=== PATIENT | female | born 1965 | race Caucasian/White ===

== ENCOUNTER 2017-09-02 12:14 | Day surgery (SDC) | payer BC ==
[~2017-09-02 12:14] MED LIST: Lactated Ringers 1,000 ML IV SCH
--- NOTE | 2017-09-02 13:12 | PCM.PREANE ---
Preanesthetic Assessment - Procedure Proposed Procedure: EGD - Anesthesia/Transfusion/Family Hx Anesthesia History: Prior Anesthesia Without Reaction Family History of Anesthesia Reaction: No Transfusion History: No Prior Transfusion(s) Intubation History: Unknown - Review of Systems General: Other (swallowing difficulties (family hx of the same)) Pulmonary: Other (Asthmatic - no episodes since appearing in [place]) Cardiovascular: No Symptoms Gastrointestinal: Difficulty Swallowing (see above) Neurological: No Symptoms Other: Reports: None - Physical Assessment NPO Status Date: 09/01/17 NPO Status Time: 22:00 O2 Sat by Pulse Oximetry: 97 Respiratory Rate: 16 Vital Signs: Last Vital Signs Temp 97.9 F 09/02/17 12:37 Pulse 76 09/02/17 12:37 Resp 16 09/02/17 12:37 BP 155/100 H 09/02/17 12:37 Pulse Ox 97 09/02/17 12:37 Height: 5 ft 7 in Weight: 204 lb ASA Class: 2 Mental Status: Alert & Oriented x3 Airway Class: Mallampati = 1 Dentition: Reports: Normal Dentition Thyro-Mental Finger Breadths: 4 Mouth Opening Finger Breadths: 3 ROM/Head Extension: Full Lungs: Clear to Auscultation, Normal Respiratory Effort Cardiovascular: Regular Rate, Regular Rhythm, No Murmurs - Allergies Allergies/Adverse Reactions: Allergies Allergy/AdvReac Type Severity Reaction Status Date / Time Sulfa (Sulfonamide Allergy Rash Verified 06/17/16 13:52 Antibiotics) - Blood Blood Available: No Product(s) Available: None - Anesthesia Plan Pre-Op Medication Ordered: None - Acknowledgements Anesthesia Type Planned: MAC Pt an Appropriate Candidate for the Planned Anesthesia: Yes Alternatives and Risks of Anesthesia Discussed w Pt/Guardian: Yes Pt/Guardian Understands and Agrees with Anesthesia Plan: Yes PreAnesthesia Questionnaire HEENT History: Reports: None Cardiovascular History: Reports: None Respiratory History: Reports: None Gastrointestinal History: Reports: GERD Genitourinary History: Reports: Renal Calculus 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 Musculoskeletal History: Reports: Other (See Below) Other Musculoskeletal History: back and leg spasms Neurological History: Reports: None Psychiatric History: Reports: None Endocrine/Metabolic History: Reports: Obesity/BMI 30+ Hematologic History: Reports: None Immunologic History: Reports: None Oncologic (Cancer) History: Reports: None Dermatologic History: Reports: None - Past Surgical History Head Surgeries/Procedures: Reports: None HEENT Surgical History: Reports: Adenoidectomy, Naso-Sinus Surgery, Oral Surgery , Tonsillectomy Other HEENT Surgeries/Procedures: hx of fx orbit from being hit by a softball Cardiovascular Surgical History: Reports: None Respiratory Surgical History: Reports: None GI Surgical History: Reports: Appendectomy, Cholecystectomy, Colonoscopy Female Surgical History: Reports: Dilitation & Evacuation, Kidney stone extraction Endocrine Surgical History: Reports: None Neurological Surgical History: Reports: None Musculoskeletal Surgical History: Reports: None Oncologic Surgical History: Reports: None Dermatological Surgical History: Reports: None - History Comment History Comment: etoh "1-2x a week" - SUBSTANCE USE Smoking Status *Q: Never Smoker Tobacco Use Within Last Twelve Months: No Recreational Drug Use History: Yes Recreational Drug Last Use: 10 years ago - HOME MEDS Home Medications: Home Meds Cyclobenzaprine HCl 1 tab PO ASDIRECTED PRN 06/17/16 [History] Nabumetone 500 mg PO ASDIRECTED PRN 06/17/16 [History] - CURRENT (IN HOUSE) MEDS Current Meds: Current Medications Lactated Ringer's (Ringers, Lactated) 1,000 mls @ 125 mls/hr IV ASDIRECTED EFFIE Last Admin: 09/02/17 12:39 Dose: 125 mls/hr
[2017-09-02] MEDS ORDERED: Propofol 200 MG/20 ML SDV ONE (13:27)
[2017-09-02] MEDS ORDERED: fentaNYL 100 MCG/2 ML SDV ONE (13:27)
--- NOTE | 2017-09-02 13:48 | PCM.OPNOTE ---
- General Post-Op/Procedure Note Date of Surgery/Procedure: 09/02/17 Operative Procedure(s): egd w bx Findings: see dict [id number] Pre Op Diagnosis: gerd Post-Op Diagnosis: Same Anesthesia Technique: Moderate Sedation Primary Surgeon: Mika Westfall Pathology: egd bx Complications: None Condition: Good
--- NOTE | 2017-09-02 14:07 | PCM.POSTAN ---
POST ANESTHESIA ASSESSMENT - MENTAL STATUS Mental Status: Alert, Oriented - RESPIRATORY Respiratory Status: Respiratory Rate WNL, Airway Patent, O2 Saturation Stable - CARDIOVASCULAR CV Status: Pulse Rate WNL, Blood Pressure Stable - GASTROINTESTINAL GI Status: No Symptoms - POST OP HYDRATION Hydration Status: Adequate & Stable
--- NOTE | 2017-09-02 14:08 | PCM48HPAN ---
Post Anesthesia Note - EVALUATION WITHIN 48HRS OF ANESTHETIC Vital Signs in Normal Range: Yes Patient Participated in Evaluation: Yes Respiratory Function Stable: Yes Airway Patent: Yes Cardiovascular Function Stable: Yes Hydration Status Stable: Yes Pain Control Satisfactory: Yes Nausea and Vomiting Control Satisfactory: Yes Mental Status Recovered: Yes
[2017-09-02 14:19] VITALS: BP 137/80
--- NOTE | 2017-09-02 19:21 | OR ---
SURGEON: Mika Westfall MD DATE OF PROCEDURE: 09/02/2017 PREOPERATIVE DIAGNOSIS: Acid reflux. POSTOPERATIVE DIAGNOSIS: Acid reflux. PROCEDURE PERFORMED: EGD with biopsy. COMPLICATIONS: None. DESCRIPTION OF PROCEDURE: EGD: The patient was taken to the endoscopy room, and with the VICE PRESIDENT DIVERSITY, Diprivan was administered. A well-lubricated EGD scope was gently inserted through the oropharynx, down the esophagus, passing through the gastroesophageal junction, into the stomach. The mucosa was examined upon the passage. Any etiology will be noted. Once in the stomach, we continued to advance to the distal antrum, passed through the pylorus into the second portion of the duodenum. Again, the mucosa was examined for any abnormality and etiology. The scope was then retrieved back to the stomach and then retroflexed to look at the fundus of the stomach. If a biopsy was indicated, we will biopsy the antrum, body, and gastroesophageal junction. The air will be sucked out while the scope is retrieved to reduce the patient's discomfort. The patient tolerated the procedure well. There were no intraoperative complications. Dr. Westfall was present through the whole procedure. Prior to surgery, a time-out had been called, the patient identified, procedure identified and antibiotic administered. FINDINGS: 1. The patient is easily sedated with VICE PRESIDENT DIVERSITY and Diprivan. The patient is soundly snoring. 2. Oropharynx and proximal esophagus are free of disease, and distal esophagus, the GE junction at 40, shows moderate amount of salmon-colored change consistent with acid reflux, and stomach rugae is normal in appearance, and no blood, ulcer, food, bile observed. Antrum was mildly inflamed and duodenum was grossly normal in appearance. The scope retrieved back to the stomach. Retroflexed look at the fundus of stomach, there was no hiatal hernia. Biopsy done at antrum, body, GE junction at 40, and sucked out the air while scope pulling out. PRIMARY SURGEON: SECONDARY SURGEON: QUILL WORKER: REASON QUILL WORKER WAS NECESSARY: ROLE OF QUILL WORKER: BRIAN / LAMAR /[id number]
== END 2017-09-02 14:40 | disposition home or self-care (01) ==
LOC: MW.SDS 12:14
PROVIDERS: ATTEND Surgery
DX: K29.50 Unspecified chronic gastritis without bleeding (principal); K21.0 Gastro-esophageal reflux disease with esophagitis; J45.909 Unspecified asthma, uncomplicated; J30.9 Allergic rhinitis, unspecified; Z88.2 Allergy status to sulfonamides; Z79.899 Other long term (current) drug therapy; Z90.49 Acquired absence of other specified parts of digestive tract; Z98.890 Other specified postprocedural states
CPT/HCPCS: 43239; 88305; 88312; J3010; J7120; J2704

== ENCOUNTER 2018-12-01 09:21 | Emergency (ER) | payer BC ==
[2018-12-01] MEDS ORDERED: Sodium Chloride 0.9% 10 ML Syringe FLUSH PRN (10:07)
[2018-12-01] MEDS ORDERED: Sodium Chloride 0.9% 2.5 ML Syringe FLUSH PRN (10:07)
--- NOTE | 2018-12-01 10:09 | EDM.PDOC ---
ED HPI GENERAL MEDICAL PROBLEM - General Chief Complaint: General Stated Complaint: HIGH BP Time Seen by Provider: 12/01/18 10:03 Source of Information: Reports: Patient History Limitations: Reports: No Limitations - History of Present Illness INITIAL COMMENTS - FREE TEXT/NARRATIVE: HISTORY AND PHYSICAL: History of present illness: Patient is a 53-year-old female who presents to the emergency room with concerns of headache and high blood pressure. She states she was initially diagnosed with hypertension approximately 5 weeks ago while at the [facility]. At this time she was started on losartan 25 mg once daily. Since that time she has been evaluated 2-3 other times and has gradually had her medication increased to 75 mg once daily. She has been seeing Dr. Tapia of [place], last seeing him yesterday. She states that she had lab work done but did not have any adjustment in her medications. Patient states that what brought her in today she started to develop a headache. Patient states she does not usually have headaches and that this won't specifically is behind her right eye. Her headache is 6-7 out of 10 and throbbing. Patient states she has not taken her hypertensive medications the past few days for testing that was done in [place]. He was told to start her medication today but has not taken her dose today. She denies fever, chills, visual changes, blurry vision, nausea, vomiting, diaphoresis, chest pain, shortness of breath, palpitations, constipation, burning with urination, syncope, or all other GI, , cardiovascular, respiratory concerns. Patient denies any other health history other than the hypertension. Review of systems: As per history of present illness and below otherwise all systems reviewed and negative. Past medical history: As per history of present illness and as reviewed below otherwise noncontributory. Surgical history: As per history of present illness and as reviewed below otherwise noncontributory. Social history: See social history for further information Family history: As per history of present illness and as reviewed below otherwise noncontributory. Physical exam: General: Well-developed and well-nourished 53-year-old female. Alert and oriented. Nontoxic appearing and in no acute distress. HEENT: Atraumatic, normocephalic, pupils equal and reactive bilaterally, negative for conjunctival pallor or scleral icterus, mucous membranes moist, TMs normal bilaterally, throat clear, neck supple, nontender, trachea midline. No drooling or trismus noted. No meningeal signs. No hot potato voice noted. Lungs: Clear to auscultation, breath sounds equal bilaterally, chest nontender. Heart: S1S2, regular rate and rhythm without overt murmur Abdomen: Soft, nondistended, nontender. Negative for masses or hepatosplenomegaly. Negative for costovertebral tenderness. Pelvis: Stable nontender. Genitourinary: Deferred. Rectal: Deferred. Skin: Intact, warm, dry. No lesions or rashes noted. Extremities: Atraumatic, negative for cords or calf pain. Neurovascular unremarkable. Neuro: Awake, alert, oriented. Cranial nerves II through XII unremarkable. Cerebellum unremarkable. Motor and sensory unremarkable throughout. Exam nonfocal. Notes: I reviewed the lab work that patient is pending at Dr. Carr office in [place]. It appears as if Dr. Carr's testing for secondary causes for hypertension such as pheochromocytoma and renal artery stenosis amongst other causes of secondary hypertension. Lab work is unremarkable. The head CT shows no acute/significant findings. Chest x-ray is negative. I did reassess vitals and patient's blood pressure had returned to normal range by the end of the visit and treatment of her headache has resolved. I did call and speak with Dr. Carr personally about patients ER visit. He has no further recommendations and will follow up with her as priorly arranged. Supportive care measures were reviewed and discussed. Voices understanding and is agreeable to plan of care. Denies any further questions or concerns at this time. Diagnostics: CBC, CMP, EKG, UA, chest x-ray, troponin, head CT Therapeutics: Saline lock, Benadryl, Zofran, Reglan, Toradol Prescription: None Impression: 1. Hypertension 2. Headache Plan: 1. Start/continue your at home hypertension medications as previously prescribed. 2. Continue your follow-up as priorly directed for your hypertension as discussed. 3. You can alternate Tylenol and ibuprofen as directed for pain or discomfort of headaches. 4. Return to the ED as needed and as discussed. Definitive disposition and diagnosis as appropriate pending reevaluation and review of above. Right Eye Pain Score (Numeric/FACES): 5 - Related Data Allergies Allergy/AdvReac Type Severity Reaction Status Date / Time Sulfa (Sulfonamide Allergy Rash Verified 12/01/18 09:49 Antibiotics) Home Meds: Home Meds Cyclobenzaprine HCl 1 tab PO ASDIRECTED PRN 06/17/16 [History] Nabumetone 500 mg PO ASDIRECTED PRN 06/17/16 [History] Losartan [Cozaar] 25 mg PO DAILY 12/01/18 [History] Losartan [Cozaar] 50 mg PO DAILY 12/01/18 [History] Past Medical History HEENT History: Reports: None Cardiovascular History: Reports: None, Hypertension Respiratory History: Reports: None Gastrointestinal History: Reports: GERD Genitourinary History: Reports: Renal Calculus 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 Musculoskeletal History: Reports: Other (See Below) Other Musculoskeletal History: back and leg spasms Neurological History: Reports: None Psychiatric History: Reports: None Endocrine/Metabolic History: Reports: Obesity/BMI 30+ Hematologic History: Reports: None Immunologic History: Reports: None Oncologic (Cancer) History: Reports: None Dermatologic History: Reports: None - Past Surgical History Head Surgeries/Procedures: Reports: None HEENT Surgical History: Reports: Adenoidectomy, Naso-Sinus Surgery, Oral Surgery , Tonsillectomy Other HEENT Surgeries/Procedures: hx of fx orbit from being hit by a softball Cardiovascular Surgical History: Reports: None Respiratory Surgical History: Reports: None GI Surgical History: Reports: Appendectomy, Cholecystectomy, Colonoscopy Female Surgical History: Reports: Dilitation & Evacuation, Kidney stone extraction Endocrine Surgical History: Reports: None Neurological Surgical History: Reports: None Musculoskeletal Surgical History: Reports: None Oncologic Surgical History: Reports: None Dermatological Surgical History: Reports: None - History Comment History Comment: etoh "1-2x a week" Social & Family History - Tobacco Use Smoking Status *Q: Never Smoker - Alcohol Use Days Per Week of Alcohol Use: 2 Number of Drinks Per Day: 3 Total Drinks Per Week: 6 - Recreational Drug Use Recreational Drug Use: No ED ROS GENERAL - Review of Systems Review Of Systems: ROS reveals no pertinent complaints other than HPI. ED EXAM, GENERAL - Physical Exam Exam: See Below (See dictation) Course - Vital Signs Last Recorded V/S: Last Vital Signs Temp 96.8 F 12/01/18 09:47 Pulse 65 12/01/18 12:37 Resp 16 12/01/18 11:55 BP 145/78 H 12/01/18 12:37 Pulse Ox 97 12/01/18 12:37 - Orders/Labs/Meds Orders: Active Orders 24 hr Category Date Time Status EKG Documentation Completion [RC] STAT Care 12/01/18 10:07 Active Chest 1V Frontal [CR] Stat Exams 12/01/18 10:07 Taken Sodium Chloride 0.9% [Saline Flush] Med 12/01/18 10:07 Active 10 ml FLUSH ASDIRECTED PRN Sodium Chloride 0.9% [Saline Flush] Med 12/01/18 10:07 Active 2.5 ml FLUSH ASDIRECTED PRN Saline Lock Insert [OM.PC] Stat Oth 12/01/18 10:07 Ordered Medication Orders Sodium Chloride (Saline Flush) 10 ml FLUSH ASDIRECTED PRN PRN Reason: Keep Vein Open Last Admin: 12/01/18 11:09 Dose: 10 ml Sodium Chloride (Saline Flush) 2.5 ml FLUSH ASDIRECTED PRN PRN Reason: Keep Vein Open Last Admin: 12/01/18 11:09 Dose: 2.5 ml Labs: Laboratory Tests 12/01/18 12/01/18 12/01/18 Range/Units 10:38 10:38 12:15 WBC 6.46 (4.0-11.0) K/uL RBC 4.66 (4.30-5.90) M/uL Hgb 14.2 (12.0-16.0) g/dL Hct 40.8 (36.0-46.0) % MCV 87.6 (80.0-98.0) fL MCH 30.5 (27.0-32.0) pg MCHC 34.8 (31.0-37.0) g/dL RDW Std Deviation 41.6 (28.0-62.0) fl RDW Coeff of Cecelia 13 (11.0-15.0) % Plt Count 296 (150-400) K/uL MPV 11.40 (7.40-12.00) fL Neut % (Auto) 46.6 L (48.0-80.0) % Lymph % (Auto) 42.7 H (16.0-40.0) % [place] % (Auto) 7.3 (0.0-15.0) % Eos % (Auto) 2.9 (0.0-7.0) % Baso % (Auto) 0.5 (0.0-1.5) % Neut # (Auto) 3.0 (1.4-5.7) K/uL Lymph # (Auto) 2.8 H (0.6-2.4) K/uL Cuming # (Auto) 0.5 (0.0-0.8) K/uL Eos # (Auto) 0.2 (0.0-0.7) K/uL Baso # (Auto) 0.0 (0.0-0.1) K/uL Nucleated RBC % 0.0 /100WBC Nucleated RBCs # 0 K/uL Sodium 141 (136-145) mmol/L Potassium 3.8 (3.5-5.1) mmol/L Chloride 106 (98-107) mmol/L Carbon Dioxide 25.4 (21.0-32.0) mmol/L BUN 18 (7.0-18.0) mg/dL Creatinine 0.9 (0.6-1.0) mg/dL Est Cr Clr Drug Dosing 65.05 mL/min Estimated GFR (MDRD) > 60.0 ml/min Glucose 98 (74-106) mg/dL Calcium 9.3 (8.5-10.1) mg/dL Total Bilirubin 0.4 (0.2-1.0) mg/dL AST 27 (15-37) IU/L ALT 55 (14-63) IU/L Alkaline Phosphatase 75 (46-116) U/L Troponin I < 0.050 (0.000-0.056) ng/mL Total Protein 7.8 (6.4-8.2) g/dL Albumin 4.1 (3.4-5.0) g/dL Globulin 3.7 (2.6-4.0) g/dL Albumin/Globulin Ratio 1.1 (0.9-1.6) Urine Color YELLOW Urine Appearance CLEAR Urine pH 5.5 (5.0-8.0) Ur Specific [place] >= 1.030 (1.001-1.035) Urine Protein TRACE H (NEGATIVE) mg/dL Urine Glucose (UA) NEGATIVE (NEGATIVE) mg/dL Urine Ketones NEGATIVE (NEGATIVE) mg/dL Urine Occult Blood NEGATIVE (NEGATIVE) Urine Nitrite NEGATIVE (NEGATIVE) Urine Bilirubin NEGATIVE (NEGATIVE) Urine Urobilinogen 0.2 (<2.0) EU/dL Ur Leukocyte Esterase NEGATIVE (NEGATIVE) Urine RBC 0-1 (0-2/HPF) Urine WBC 1-3 (0-5/HPF) Ur Epithelial Cells FEW (NONE-FEW) Calcium Oxalate Crystal MODERATE (NEGATIVE) Urine Bacteria FEW (NEGATIVE) Urine Mucus LIGHT (NONE-MOD) Meds: Medications Generic Name Dose Route Start Last Admin Trade Name Noeq PRN Reason Stop Dose Admin Sodium Chloride 10 ml 12/01/18 10:07 12/01/18 11:09 Saline Flush FLUSH 10 ml ASDIRECTED PRN Administration Keep Vein Open Sodium Chloride 2.5 ml 12/01/18 10:07 12/01/18 11:09 Saline Flush FLUSH 2.5 ml ASDIRECTED PRN Administration Keep Vein Open Discontinued Medications Generic Name Dose Route Start Last Admin Trade Name Debora PRN Reason Stop Dose Admin Diphenhydramine HCl 50 mg 12/01/18 10:31 12/01/18 11:08 Benadryl IVPUSH 12/01/18 10:32 50 mg ONETIME ONE Administration Sodium Chloride 1,000 mls @ 999 mls/hr 12/01/18 10:33 12/01/18 11:09 Normal Saline IV 12/01/18 11:33 999 mls/hr STAT ONE Administration Ketorolac Tromethamine 30 mg 12/01/18 10:31 12/01/18 11:08 Toradol IVPUSH 12/01/18 10:32 30 mg ONETIME ONE Administration Metoclopramide HCl 10 mg 12/01/18 10:31 12/01/18 11:08 Reglan IV 12/01/18 10:32 10 mg ONETIME ONE Administration Ondansetron HCl 4 mg 12/01/18 10:31 12/01/18 11:08 Zofran IVPUSH 12/01/18 10:32 4 mg ONETIME ONE Administration Departure - Departure Time of Disposition: 12:27 Disposition: Home, Self-Care 01 Clinical Impression: Hypertension Qualifiers: Hypertension type: unspecified Qualified Code(s): I10 - Essential (primary) hypertension Headache Qualifiers: Headache type: unspecified Headache chronicity pattern: acute headache Intractability: intractable Qualified Code(s): R51 - Headache - Discharge Information Instructions: General Headache Without Cause, [id number] Referrals: PCP,None [Primary Care Provider] - Forms: ED Department Discharge Additional Instructions: The following information is given to patients seen in the emergency department who are being discharged to home. This information is to outline your options for follow-up care. We provide all patients seen in our emergency department with a follow-up referral. The need for follow-up, as well as the timing and circumstances, are variable depending upon the specifics of your emergency department visit. If you don't have a primary care physician on staff, we will provide you with a referral. We always advise you to contact your personal physician following an emergency department visit to inform them of the circumstance of the visit and for follow-up with them and/or the need for any referrals to a consulting specialist. The emergency department will also refer you to a specialist when appropriate. This referral assures that you have the opportunity for follow-up care with a specialist. All of these measure are taken in an effort to provide you with optimal care, which includes your follow-up. Under all circumstances we always encourage you to contact your private physician who remains a resource for coordinating your care. When calling for follow-up care, please make the office aware that this follow-up is from your recent emergency room visit. If for any reason you are refused follow-up, please contact the [facility] Emergency Department at and asked to speak to the emergency department charge nurse. [facility] [address] [place] [id number] [id number] 1. Start/continue your at home hypertension medications as previously prescribed. 2. Continue your follow-up as priorly directed for your hypertension as discussed. 3. You can alternate Tylenol and ibuprofen as directed for pain or discomfort of headaches. 4. Return to the ED as needed and as discussed. - My Orders Last 24 Hours: My Active Orders 12/01/18 10:07 EKG Documentation Completion [RC] STAT Chest 1V Frontal [CR] Stat Sodium Chloride 0.9% [Saline Flush] 10 ml FLUSH ASDIRECTED PRN Sodium Chloride 0.9% [Saline Flush] 2.5 ml FLUSH ASDIRECTED PRN Saline Lock Insert [OM.PC] Stat - Assessment/Plan Last 24 Hours: My Active Orders 12/01/18 10:07 EKG Documentation Completion [RC] STAT Chest 1V Frontal [CR] Stat Sodium Chloride 0.9% [Saline Flush] 10 ml FLUSH ASDIRECTED PRN Sodium Chloride 0.9% [Saline Flush] 2.5 ml FLUSH ASDIRECTED PRN Saline Lock Insert [OM.PC] Stat
[2018-12-01] MEDS ORDERED: diphenhydrAMINE 50 MG/ML SDV IVPUSH ONE (10:31)
[2018-12-01] MEDS ORDERED: Ketorolac 30 MG/ML SDV IVPUSH ONE (10:31)
[2018-12-01] MEDS ORDERED: Ondansetron 4 MG/2 ML SDV IVPUSH ONE (10:31)
[2018-12-01] MEDS ORDERED: Metoclopramide 10 MG/2 ML SDV IV ONE (10:31)
[2018-12-01] MEDS ORDERED: Sodium Chloride 0.9% 1,000 ML IV ONE (10:33)
[2018-12-01 11:04] LABS: CHLORIDE,CL 106 mmol/L (98-107); SODIUM,NA 141 mmol/L (136-145)
--- NOTE | 2018-12-01 11:22 | CT ---
INDICATION: 53-year-old female. Head pain. TECHNIQUE: CT images foramen magnum to the vertex were obtained without contrast. Axial sagittal and coronal reformatted images are obtained. FINDINGS: The ventricles are normal in size and shape. No evidence of acute intracranial hemorrhage no mass effect. No subdural fluid collections. No focal brain edema. No posterior fossa hemorrhage or mass effect. Bony calvarium is unremarkable. The included paranasal sinuses are clear. IMPRESSION: Negative CT brain without contrast. Please note that all CT scans at this facility use dose modulation, iterative reconstruction, and/or weight-based dosing when appropriate to reduce radiation dose to as low as reasonably achievable. Dictated by Thai Barclay MD @ Dec 01 2018 11:19AM Signed by Dr. Thai Barclay @ Dec 01 2018 11:21AM
--- NOTE | 2018-12-01 13:44 | CR ---
EXAM DATE: 12/01/18 PATIENT'S AGE: 53 Patient: GEOVANNA CASTREJON Facility: [facility] Site . Site : [id number] Study: XRay-Chest [id number]/[id number] 10:28:01 AM Ordering Physician: LYNNETTE MCDONALD Final Report: INDICATION: HTN INDICATION: Hypertension. TECHNIQUE: Chest 1 view. COMPARISON: None FINDINGS: Cardiovascular and mediastinum: Heart size and vasculature are normal in caliber and appearance. Mediastinum is within normal limits. Lungs and pleural space: Lungs are clear. No sign of infiltrate or mass. No sign of pleural effusion. No pneumothorax. Bones and soft tissues: No significant findings. IMPRESSION: Lungs are clear. Dictated by Lavelle Hassan MD @ 12/01/2018 10:34:37 AM Dictated by: Lavelle Hassan MD @ 12/01/2018 10:34:45 Signed by: Lavelle Hassan MD @12/01/2018 10:34:45 AM (Electronic Signature) Report Signed by Proxy. [facility]
[2018-12-01 14:04] VITALS: BP 145/78
== END 2018-12-01 12:40 | disposition home or self-care (01) ==
LOC: MW.ED 09:21
DX: I10 Essential (primary) hypertension (principal); Z88.2 Allergy status to sulfonamides; Z79.899 Other long term (current) drug therapy
CPT/HCPCS: 36415; 70450; 71045; 80053; 81001; 84484; 85025; 93005; 96361; 96374; 96375; 99284; J1200; J1885; J2405; J2765; J7040; 83835; 99283

== ENCOUNTER 2018-12-09 10:16 | Emergency (ER) | payer BC ==
--- NOTE | 2018-12-09 10:43 | EDM.PDOC ---
ED HPI GENERAL MEDICAL PROBLEM - General Chief Complaint: Headache Stated Complaint: BAD HEADACHE Time Seen by Provider: 12/09/18 10:33 Source of Information: Reports: Patient History Limitations: Reports: No Limitations - History of Present Illness INITIAL COMMENTS - FREE TEXT/NARRATIVE: HISTORY AND PHYSICAL: History of present illness: Patient is a 53-year-old female here with complaint of headache. She states this headache has been ongoing for the past 3 weeks and is not new or worsened today. She was diagnosed with hypertension 5 weeks ago and started on losartan as well as a couple of other medications that she cannot recall. She was seen here a week ago and had normal labs, EKG and head CT. She states the headache is behind her right eye and is throbbing and she has some photophobia and nausea. She reports some blurriness in her right eye but denies any visual loss. She states that the only time she had relief of her headache was when she had the migraine cocktail last week and this lasted approximately 7 hours. She is taking [id number] Tylenol, Motrin, and Excedrin without relief of symptoms. She denies fevers, chills, vomiting, diarrhea, abdominal pain, chest pain, shortness of breath. Review of systems: As per history of present illness and below otherwise all systems reviewed and negative. Past medical history: As per history of present illness and as reviewed below otherwise noncontributory. Surgical history: As per history of present illness and as reviewed below otherwise noncontributory. Social history: No reported history of drug or alcohol abuse. Family history: As per history of present illness and as reviewed below otherwise noncontributory. Physical exam: General: Patient sitting comfortably in no acute distress and nontoxic appearing HEENT: Atraumatic, normocephalic, pupils reactive, negative for conjunctival pallor or scleral icterus, mucous membranes moist, throat clear, neck supple, nontender, trachea midline. No meningeal signs. Lungs: Clear to auscultation, breath sounds equal bilaterally, chest nontender. Heart: S1S2, regular, negative for clicks, rubs, or overt murmur. Abdomen: Soft, nondistended, nontender. Negative for masses or hepatosplenomegaly. Negative for costovertebral tenderness. No rigidity, rebound , guarding. Pelvis: Stable nontender. Genitourinary: Deferred. Rectal: Deferred. Extremities: Atraumatic, negative for cords or calf pain. Neurovascular unremarkable. Neuro: Awake, alert, oriented. Cranial nerves II through XII unremarkable. Cerebellum unremarkable. Motor and sensory unremarkable throughout. Exam nonfocal. Notes: Patient recently had normal labs and head CT, declines further testing today. She reports improvement in her headache after therapeutics and requesting discharge home. Diagnostics: None Therapeutics: 1L Normal Saline IV 30mg Toradol IV 50mg Benadryl IV 4mg Zofran IV 10mg Reglan IV Prescriptions: None Impression: Headache Plan: 1. Drink plenty of fluids and alternate tylenol and motrin as needed. You may take benadryl as needed as well. 2. Follow up with primary care provider or neurology, please call the number provided to schedule an appointment 3. Return to ED as needed as discussed Definitive disposition and diagnosis as appropriate pending reevaluation and review of above. Headache Pain Score (Numeric/FACES): 9 - Related Data Allergies Allergy/AdvReac Type Severity Reaction Status Date / Time Sulfa (Sulfonamide Allergy Rash Verified 12/09/18 10:23 Antibiotics) Home Meds: Home Meds Cyclobenzaprine HCl 1 tab PO ASDIRECTED PRN 06/17/16 [History] Nabumetone 500 mg PO ASDIRECTED PRN 06/17/16 [History] Losartan [Cozaar] 25 mg PO DAILY 12/01/18 [History] Losartan [Cozaar] 50 mg PO DAILY 12/01/18 [History] Calc/D3/Mag/Zn/Electrical Fitter/Gutierrez/[place] [Calcium 600 MG Plus Vit D] 1 each PO DAILY [History] Lutein/Minerals/Vit A,C & E [Ocuvite] 1 tab PO DAILY 12/09/18 [History] Past Medical History HEENT History: Reports: None Cardiovascular History: Reports: None, Hypertension Respiratory History: Reports: None Gastrointestinal History: Reports: GERD Genitourinary History: Reports: Renal Calculus 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 Musculoskeletal History: Reports: Other (See Below) Other Musculoskeletal History: back and leg spasms Neurological History: Reports: None Psychiatric History: Reports: None Endocrine/Metabolic History: Reports: Obesity/BMI 30+ Hematologic History: Reports: None Immunologic History: Reports: None Oncologic (Cancer) History: Reports: None Dermatologic History: Reports: None - Infectious Disease History Infectious Disease History: Reports: Chicken Pox - Past Surgical History Head Surgeries/Procedures: Reports: None HEENT Surgical History: Reports: Adenoidectomy, Naso-Sinus Surgery, Oral Surgery , Tonsillectomy Other HEENT Surgeries/Procedures: hx of fx orbit from being hit by a softball Cardiovascular Surgical History: Reports: None Respiratory Surgical History: Reports: None GI Surgical History: Reports: Appendectomy, Cholecystectomy, Colonoscopy Female Surgical History: Reports: Dilitation & Evacuation, Kidney stone extraction Endocrine Surgical History: Reports: None Neurological Surgical History: Reports: None Musculoskeletal Surgical History: Reports: None Oncologic Surgical History: Reports: None Dermatological Surgical History: Reports: None - History Comment History Comment: etoh "1-2x a week" Social & Family History - Family History Family Medical History: Noncontributory - Tobacco Use Smoking Status *Q: Never Smoker Second Hand Smoke Exposure: No - Caffeine Use Caffeine Use: Reports: None - Recreational Drug Use Recreational Drug Use: No ED ROS GENERAL - Review of Systems Review Of Systems: ROS reveals no pertinent complaints other than HPI. - Physical Exam Exam: See Below (See dictation) Course - Vital Signs Last Recorded V/S: Last Vital Signs Temp 96.7 F 12/09/18 10:25 Pulse 67 12/09/18 11:02 Resp 18 12/09/18 11:02 BP 148/91 H 12/09/18 11:02 Pulse Ox 95 12/09/18 11:02 - Orders/Labs/Meds Orders: Active Orders 24 hr Category Date Time Status Sodium Chloride 0.9% [Saline Flush] Med 12/09/18 10:44 Active 10 ml FLUSH ASDIRECTED PRN Sodium Chloride 0.9% [Saline Flush] Med 12/09/18 10:44 Active 2.5 ml FLUSH ASDIRECTED PRN Saline Lock Insert [OM.PC] Stat Oth 12/09/18 10:44 Ordered Medication Orders Sodium Chloride (Saline Flush) 10 ml FLUSH ASDIRECTED PRN PRN Reason: Keep Vein Open Last Admin: 12/09/18 10:58 Dose: 10 ml Sodium Chloride (Saline Flush) 2.5 ml FLUSH ASDIRECTED PRN PRN Reason: Keep Vein Open Last Admin: 12/09/18 10:58 Dose: 2.5 ml Meds: Medications Generic Name Dose Route Start Last Admin Trade Name Debora PRN Reason Stop Dose Admin Sodium Chloride 10 ml 12/09/18 10:44 12/09/18 10:58 Saline Flush FLUSH 10 ml ASDIRECTED PRN Administration Keep Vein Open Sodium Chloride 2.5 ml 12/09/18 10:44 12/09/18 10:58 Saline Flush FLUSH 2.5 ml ASDIRECTED PRN Administration Keep Vein Open Discontinued Medications Generic Name Dose Route Start Last Admin Trade Name Debora PRN Reason Stop Dose Admin Diphenhydramine HCl 50 mg 12/09/18 10:44 12/09/18 10:58 Benadryl IVPUSH 12/09/18 10:45 50 mg ONETIME ONE Administration Sodium Chloride 1,000 mls @ 999 mls/hr 12/09/18 10:44 12/09/18 10:59 Normal Saline IV 12/09/18 11:44 999 mls/hr STAT ONE Administration Ketorolac Tromethamine 30 mg 12/09/18 10:44 12/09/18 10:58 Toradol IVPUSH 12/09/18 10:45 30 mg ONETIME ONE Administration Metoclopramide HCl 10 mg 12/09/18 10:44 12/09/18 10:58 Reglan IV 12/09/18 10:45 10 mg ONETIME ONE Administration Ondansetron HCl 4 mg 12/09/18 10:44 12/09/18 10:58 Zofran IVPUSH 12/09/18 10:45 4 mg ONETIME ONE Administration Departure - Departure Time of Disposition: 12:01 Disposition: Home, Self-Care 01 Condition: Good Clinical Impression: Headache Qualifiers: Headache type: unspecified Headache chronicity pattern: acute headache Intractability: intractable Qualified Code(s): R51 - Headache - Discharge Information Referrals: PCP,None [Primary Care Provider] - Michelle Pena MD [Physician] - 1 Week (headache x [address] and lab work wnl. No history of migraines ) Forms: ED Department Discharge Additional Instructions: The following information is given to patients seen in the emergency department who are being discharged to home. This information is to outline your options for follow-up care. We provide all patients seen in our emergency department with a follow-up referral. The need for follow-up, as well as the timing and circumstances, are variable depending upon the specifics of your emergency department visit. If you don't have a primary care physician on staff, we will provide you with a referral. We always advise you to contact your personal physician following an emergency department visit to inform them of the circumstance of the visit and for follow-up with them and/or the need for any referrals to a consulting specialist. The emergency department will also refer you to a specialist when appropriate. This referral assures that you have the opportunity for follow-up care with a specialist. All of these measure are taken in an effort to provide you with optimal care, which includes your follow-up. Under all circumstances we always encourage you to contact your private physician who remains a resource for coordinating your care. When calling for follow-up care, please make the office aware that this follow-up is from your recent emergency room visit. If for any reason you are refused follow-up, please contact the [facility] Emergency Department at and asked to speak to the emergency department charge nurse. [facility] Primary Care [address] [place] [id number] [facility] Specialty Care - Neurology [facility] [address] [place] [address], [address] [place] [address] 1. Take medication as instructed 2. Follow up with primary care provider 3. Return to ED as needed as discussed 1. Drink plenty of fluids and alternate tylenol and motrin as needed. You may take benadryl as needed as well. 2. Follow up with primary care provider or neurology, please call the number provided to schedule an appointment 3. Return to ED as needed as discussed - My Orders Last 24 Hours: My Active Orders 12/09/18 10:44 Sodium Chloride 0.9% [Saline Flush] 10 ml FLUSH ASDIRECTED PRN Sodium Chloride 0.9% [Saline Flush] 2.5 ml FLUSH ASDIRECTED PRN Saline Lock Insert [OM.PC] Stat - Assessment/Plan Last 24 Hours: My Active Orders 12/09/18 10:44 Sodium Chloride 0.9% [Saline Flush] 10 ml FLUSH ASDIRECTED PRN Sodium Chloride 0.9% [Saline Flush] 2.5 ml FLUSH ASDIRECTED PRN Saline Lock Insert [OM.PC] Stat
[2018-12-09] MEDS ORDERED: diphenhydrAMINE 50 MG/ML SDV IVPUSH ONE (10:44)
[2018-12-09] MEDS ORDERED: Metoclopramide 10 MG/2 ML SDV IV ONE (10:44)
[2018-12-09] MEDS ORDERED: Ketorolac 30 MG/ML SDV IVPUSH ONE (10:44)
[2018-12-09] MEDS ORDERED: Sodium Chloride 0.9% 2.5 ML Syringe FLUSH PRN (10:44)
[2018-12-09] MEDS ORDERED: Sodium Chloride 0.9% 1,000 ML IV ONE (10:44)
[2018-12-09] MEDS ORDERED: Sodium Chloride 0.9% 10 ML Syringe FLUSH PRN (10:44)
[2018-12-09] MEDS ORDERED: Ondansetron 4 MG/2 ML SDV IVPUSH ONE (10:44)
[2018-12-09 12:22] VITALS: BP 137/99
== END 2018-12-09 12:20 | disposition home or self-care (01) ==
LOC: MW.ED 10:16
DX: R51 Headache (principal); I10 Essential (primary) hypertension; K21.9 Gastro-esophageal reflux disease without esophagitis; Z79.899 Other long term (current) drug therapy; Z23 Encounter for immunization
CPT/HCPCS: 93005; 96361; 96374; 96375; 99283; J1200; J1885; J2405; J2765; J7040

== ENCOUNTER 2018-12-13 02:47 | Emergency (ER) | payer BC ==
[2018-12-13] MEDS ORDERED: Sodium Chloride 0.9% 1,000 ML IV ONE (03:05)
[2018-12-13] MEDS ORDERED: Ketorolac 30 MG/ML SDV IVPUSH ONE (03:05)
[2018-12-13] MEDS ORDERED: Ondansetron 4 MG/2 ML SDV IVPUSH ONE (03:05)
[2018-12-13] MEDS ORDERED: LORazepam 2 MG/ML SDV IVPUSH ONE (03:54)
[2018-12-13] MEDS ORDERED: diphenhydrAMINE 50 MG/ML SDV IVPUSH ONE (03:55)
--- NOTE | 2018-12-13 03:56 | EDM.PDOC ---
ED HPI GENERAL MEDICAL PROBLEM - General Chief Complaint: Headache Stated Complaint: HEADACHE Time Seen by Provider: 12/13/18 03:55 Source of Information: Reports: Patient - History of Present Illness INITIAL COMMENTS - FREE TEXT/NARRATIVE: HISTORY AND PHYSICAL: History of present illness: [Patient presents with complaint of headache She is seeing multiple providers over the last month she has had pain for one month on the right side trigeminal distribution, she's had multiple tests and imaging CT and MRI scheduled for MRI with contrast 7 24-hour urine VMA studies an ultrasound of her adrenal gland And followed in [place] under specialist care I can reproduce symptoms with palpation of her right TMJ joint with and reproduce symptoms with opening her mouth and closing she does have some evidence of tooth grinding, and complains of ear pain and trigeminal distribution pain She has no fever nausea vomiting chills sweats no chest pain shortness breath dizziness or palpitation no bowel or urine symptoms] Review of systems: As per history of present illness and below otherwise all systems reviewed and negative. Past medical history: As per history of present illness and as reviewed below otherwise noncontributory. Surgical history: As per history of present illness and as reviewed below otherwise noncontributory. Social history: No reported history of drug or alcohol abuse. Family history: As per history of present illness and as reviewed below otherwise noncontributory. Physical exam: HEENT: Atraumatic, normocephalic, pupils reactive, negative for conjunctival pallor or scleral icterus, mucous membranes moist, throat clear, neck supple, nontender, trachea midline. Lungs: Clear to auscultation, breath sounds equal bilaterally, chest nontender. Heart: S1S2, regular, negative for clicks, rubs, or JVD. Abdomen: Soft, nondistended, nontender. Negative for masses or hepatosplenomegaly. Negative for costovertebral tenderness. Pelvis: Stable nontender. Genitourinary: Deferred. Rectal: Deferred. Extremities: Atraumatic, negative for cords or calf pain. Neurovascular unremarkable. Neuro: Awake, alert, oriented. Cranial nerves II through XII unremarkable. Cerebellum unremarkable. Motor and sensory unremarkable throughout. Exam nonfocal. Diagnostics: [CT on file from 12/04/2018 MRI recently performed and scheduled with contrast dye Lab on file CBC CMP from 12/04/2018 multiple lab studies in [place] including what sounds to be ruled out of pheochromocytoma ] With ultrasound serum labs and 24-hour urine Therapeutics: [ normal saline Toradol 30 mg IV Benadryl Ativan Minimal relief subjectively from above however the patient seems more at ease and in less discomfort ] Carbamazepine 100 mg by mouth now and twice a day 7 days follow-up with primary care Mouth block may benefit Impression: [TMJ Cannot rule out trigeminal neuralgia, cannot rule out pseudotumor cerebri however less likely] Definitive disposition and diagnosis as appropriate pending reevaluation and review of above. headache Pain Score (Numeric/FACES): 9 - Related Data Allergies Allergy/AdvReac Type Severity Reaction Status Date / Time Sulfa (Sulfonamide Allergy Rash Verified 12/09/18 10:23 Antibiotics) Home Meds: Home Meds Cyclobenzaprine HCl 1 tab PO ASDIRECTED PRN 06/17/16 [History] Nabumetone 500 mg PO ASDIRECTED PRN 06/17/16 [History] Losartan [Cozaar] 25 mg PO DAILY 12/01/18 [History] Losartan [Cozaar] 50 mg PO DAILY 12/01/18 [History] Calc/D3/Mag/Zn/Dog Boarder/Gutierrez/[place] [Calcium 600 MG Plus Vit D] 1 each PO DAILY [History] Lutein/Minerals/Vit A,C & E [Ocuvite] 1 tab PO DAILY 12/09/18 [History] Past Medical History HEENT History: Reports: None Cardiovascular History: Reports: None, Hypertension Respiratory History: Reports: None Gastrointestinal History: Reports: GERD Genitourinary History: Reports: Renal Calculus 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 Musculoskeletal History: Reports: Other (See Below) Other Musculoskeletal History: back and leg spasms Neurological History: Reports: None, Migraines Psychiatric History: Reports: None Endocrine/Metabolic History: Reports: Obesity/BMI 30+ Hematologic History: Reports: None Immunologic History: Reports: None Oncologic (Cancer) History: Reports: None Dermatologic History: Reports: None - Infectious Disease History Infectious Disease History: Reports: Chicken Pox - Past Surgical History Head Surgeries/Procedures: Reports: None HEENT Surgical History: Reports: Adenoidectomy, Naso-Sinus Surgery, Oral Surgery , Tonsillectomy Other HEENT Surgeries/Procedures: hx of fx orbit from being hit by a softball Cardiovascular Surgical History: Reports: None Respiratory Surgical History: Reports: None GI Surgical History: Reports: Appendectomy, Cholecystectomy, Colonoscopy Female Surgical History: Reports: Dilitation & Evacuation, Kidney stone extraction Endocrine Surgical History: Reports: None Neurological Surgical History: Reports: None Musculoskeletal Surgical History: Reports: None Oncologic Surgical History: Reports: None Dermatological Surgical History: Reports: None - History Comment History Comment: etoh "1-2x a week" Social & Family History - Family History Family Medical History: Noncontributory - Tobacco Use Smoking Status *Q: Never Smoker - Caffeine Use Caffeine Use: Reports: None - Recreational Drug Use Recreational Drug Use: No ED ROS GENERAL - Review of Systems Review Of Systems: See Below ED EXAM, GENERAL - Physical Exam Exam: See Below Course - Vital Signs Last Recorded V/S: Last Vital Signs Temp 97 F 12/13/18 04:43 Pulse 73 12/13/18 04:43 Resp 18 12/13/18 04:43 BP 139/87 12/13/18 04:43 Pulse Ox 95 12/13/18 04:43 - Orders/Labs/Meds Meds: Medications Discontinued Medications Generic Name Dose Route Start Last Admin Trade Name Debora PRN Reason Stop Dose Admin Carbamazepine 100 mg 12/13/18 04:59 Tegretol PO 12/13/18 05:00 ONETIME ONE Diphenhydramine HCl 50 mg 12/13/18 03:55 12/13/18 04:03 Benadryl IVPUSH 12/13/18 03:56 50 mg ONETIME ONE Administration Sodium Chloride 1,000 mls @ 999 mls/hr 12/13/18 03:05 12/13/18 03:33 Normal Saline IV 12/13/18 04:05 999 mls/hr STAT ONE Administration Ketorolac Tromethamine 30 mg 12/13/18 03:05 12/13/18 03:34 Toradol IVPUSH 12/13/18 03:06 30 mg ONETIME ONE Administration Lorazepam 1 mg 12/13/18 03:54 12/13/18 04:04 Ativan IVPUSH 12/13/18 03:55 1 mg ONETIME ONE Administration Ondansetron HCl 8 mg 12/13/18 03:05 12/13/18 03:33 Zofran IVPUSH 12/13/18 03:06 8 mg ONETIME ONE Administration Departure - Departure Time of Disposition: 05:09 Disposition: Home, Self-Care 01 Condition: Good Clinical Impression: TMJ (temporomandibular joint syndrome) - Discharge Information Referrals: PCP,None [Primary Care Provider] - Forms: ED Department Discharge Additional Instructions: Consider mouth block is discussed available [id number] at most pharmacies Medication as prescribed Follow-up with primary care in 2 weeks sooner as needed The following information is given to patients seen in the emergency department who are being discharged to home. This information is to outline your options for follow-up care. We provide all patients seen in our emergency department with a follow-up referral. The need for follow-up, as well as the timing and circumstances, are variable depending upon the specifics of your emergency department visit. If you don't have a primary care physician on staff, we will provide you with a referral. We always advise you to contact your personal physician following an emergency department visit to inform them of the circumstance of the visit and for follow-up with them and/or the need for any referrals to a consulting specialist. The emergency department will also refer you to a specialist when appropriate. This referral assures that you have the opportunity for follow-up care with a specialist. All of these measure are taken in an effort to provide you with optimal care, which includes your follow-up. Under all circumstances we always encourage you to contact your private physician who remains a resource for coordinating your care. When calling for follow-up care, please make the office aware that this follow-up is from your recent emergency room visit. If for any reason you are refused follow-up, please contact the [facility] emergency department at and asked to speak to the emergency department charge nurse.
[2018-12-13] MEDS ORDERED: carBAMazepine 100 MG Tab.Chew PO ONE (04:59)
[2018-12-13 05:27] VITALS: BP 150/87
== END 2018-12-13 05:30 | disposition home or self-care (01) ==
LOC: MW.ED 02:47
DX: M26.609 Unspecified temporomandibular joint disorder, unspecified side (principal); I10 Essential (primary) hypertension; K21.9 Gastro-esophageal reflux disease without esophagitis; Z88.2 Allergy status to sulfonamides; Z79.899 Other long term (current) drug therapy
CPT/HCPCS: 96361; 96374; 96375; 99283; A9270; J1200; J1885; J2060; J2405; J7040

== ENCOUNTER 2018-12-13 16:49 | Emergency (ER) | payer BC ==
--- NOTE | 2018-12-13 17:20 | EDM.PDOC ---
ED HPI GENERAL MEDICAL PROBLEM - General Chief Complaint: General Stated Complaint: HEADACHE Time Seen by Provider: 12/13/18 17:10 Source of Information: Reports: Patient History Limitations: Reports: No Limitations - History of Present Illness INITIAL COMMENTS - FREE TEXT/NARRATIVE: HISTORY AND PHYSICAL: History of present illness: Patient is a 53-year-old female who presents to the emergency room with chronic migraine headache. Pain is localized to the right anterior face. She has tenderness with palpation below the right eye going into the upper cheek bone. Denies any recent head injury, trauma or falls. Does not have any light or noise sensitivity. No neck stiffness, diaphoresis, syncope or near syncope. She does have a steady and even gait. Denies any fever, chills, chest pain, shortness of breath or cough. Denies any GI or symptoms She has been seen multiple times over the past 6 weeks by multiple providers including our primary care/ER/aerosol line operator, dentist, ophthalmology and aerosol line operator in [place](Dr. Carr). She's been informed that there may be some association with her high blood pressure with her migraine headache. Six weeks ago, she had not been taking any antihypertensive medications. Recently been started on losartan and steadily has had her dose increased after each visit. She has had a multiple labs, EKG, and head CTs which have been normal. Dr Jiang has patient scheduled for an outpatient MRI next week. Review of systems: As per history of present illness and below otherwise all systems reviewed and negative. Past medical history: As per history of present illness and as reviewed below otherwise noncontributory. Surgical history: As per history of present illness and as reviewed below otherwise noncontributory. Social history: See social history for further information Family history: As per history of present illness and as reviewed below otherwise noncontributory. Physical exam: General: Well-developed and well-nourished 53-year-old female. Alert and oriented. Nontoxic appearing and in no acute distress. HEENT: Atraumatic, normocephalic, pupils equal and reactive bilaterally, negative for conjunctival pallor or scleral icterus, mucous membranes moist, TMs normal bilaterally, throat clear, neck supple, nontender, trachea midline. Patient does have some tenderness to the right upper cheek bone extending near the ear. No drooling or trismus noted. No meningeal signs. No hot potato voice noted. Lungs: Clear to auscultation, breath sounds equal bilaterally, chest nontender. Heart: S1S2, regular rate and rhythm without overt murmur Abdomen: Soft, nondistended, nontender. Negative for masses or hepatosplenomegaly. Negative for costovertebral tenderness. Pelvis: Stable nontender. Genitourinary: Deferred. Rectal: Deferred. Skin: Intact, warm, dry. No lesions or rashes noted. Extremities: Atraumatic, negative for cords or calf pain. Neurovascular unremarkable. Neuro: Awake, alert, oriented. Cranial nerves II through XII unremarkable. Cerebellum unremarkable. Motor and sensory unremarkable throughout. Exam nonfocal. Notes: Patient has had lab work, head CT which have all been within normal limits. At this time I do not feel she needs further diagnostic testing. Patient was seen earlier this morning and had some IV fluids and medications which she reports were not helpful. She did receive a prescription for carbamazepine which was not available at [facility], per patient. Patient reports that she did not get any relief with the IV medications. States she did receive a carbamazepine this morning and would like another tablet as this is scheduled twice daily. We'll give her one tablet here and discharge her to home with close follow-up with her specialist. Supportive care measures were reviewed and discussed. Voices understanding and is agreeable to plan of care. Denies any further questions or concerns at this time. Diagnostics: None Therapeutics: IV fluid, Zofran, Toradol, Reglan, Benadryl, Carbamazepine Prescription: None Impression: Migraine headache Plan: 1. Please call the aerosol line operator/specialist you've been working with on Friday to schedule an expedited follow-up appointment 2. Keep your scheduled MRI of the brain. 3. Try to get your prescription filled through another pharmacy and start tomorrow. 4. Follow-up with your primary care provider as we discussed. Return to the ED as needed and as discussed. Definitive disposition and diagnosis as appropriate pending reevaluation and review of above. headache Pain Score (Numeric/FACES): 10 - Related Data Allergies Allergy/AdvReac Type Severity Reaction Status Date / Time Sulfa (Sulfonamide Allergy Rash Verified 12/09/18 10:23 Antibiotics) Home Meds: Home Meds Cyclobenzaprine HCl 1 tab PO ASDIRECTED PRN 06/17/16 [History] Nabumetone 500 mg PO ASDIRECTED PRN 06/17/16 [History] Losartan [Cozaar] 25 mg PO DAILY 12/01/18 [History] Losartan [Cozaar] 50 mg PO DAILY 12/01/18 [History] Calc/D3/Mag/Zn/Extruding Press Adjuster/Gutierrez/[place] [Calcium 600 MG Plus Vit D] 1 each PO DAILY [History] Lutein/Minerals/Vit A,C & E [Ocuvite] 1 tab PO DAILY 12/09/18 [History] Past Medical History HEENT History: Reports: None Cardiovascular History: Reports: None, Hypertension Respiratory History: Reports: None Gastrointestinal History: Reports: GERD Genitourinary History: Reports: Renal Calculus 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 Musculoskeletal History: Reports: Other (See Below) Other Musculoskeletal History: back and leg spasms Neurological History: Reports: None, Migraines Psychiatric History: Reports: None Endocrine/Metabolic History: Reports: Obesity/BMI 30+ Hematologic History: Reports: None Immunologic History: Reports: None Oncologic (Cancer) History: Reports: None Dermatologic History: Reports: None - Infectious Disease History Infectious Disease History: Reports: Chicken Pox - Past Surgical History Head Surgeries/Procedures: Reports: None HEENT Surgical History: Reports: Adenoidectomy, Naso-Sinus Surgery, Oral Surgery , Tonsillectomy Other HEENT Surgeries/Procedures: hx of fx orbit from being hit by a softball Cardiovascular Surgical History: Reports: None Respiratory Surgical History: Reports: None GI Surgical History: Reports: Appendectomy, Cholecystectomy, Colonoscopy Female Surgical History: Reports: Dilitation & Evacuation, Kidney stone extraction Endocrine Surgical History: Reports: None Neurological Surgical History: Reports: None Musculoskeletal Surgical History: Reports: None Oncologic Surgical History: Reports: None Dermatological Surgical History: Reports: None - History Comment History Comment: etoh "1-2x a week" Social & Family History - Family History Family Medical History: Noncontributory - Caffeine Use Caffeine Use: Reports: None ED ROS GENERAL - Review of Systems Review Of Systems: ROS reveals no pertinent complaints other than HPI. ED EXAM, GENERAL - Physical Exam Exam: See Below (See dictation) Course - Vital Signs Last Recorded V/S: Last Vital Signs Temp 98.6 F 12/13/18 17:07 Pulse 102 H 12/13/18 17:07 Resp 22 H 12/13/18 17:07 BP 138/100 H 12/13/18 17:07 Pulse Ox 96 12/13/18 17:07 - Orders/Labs/Meds Meds: Medications Discontinued Medications Generic Name Dose Route Start Last Admin Trade Name Debora PRN Reason Stop Dose Admin Carbamazepine 100 mg 12/13/18 18:29 Tegretol Xr PO 12/13/18 18:30 ONETIME ONE Diphenhydramine HCl 50 mg 12/13/18 17:21 12/13/18 17:57 Benadryl IVPUSH 12/13/18 17:22 50 mg ONETIME ONE Administration Sodium Chloride 1,000 mls @ 999 mls/hr 12/13/18 17:21 12/13/18 17:54 Normal Saline IV 12/13/18 18:21 999 mls/hr STAT ONE Administration Ketorolac Tromethamine 30 mg 12/13/18 17:21 12/13/18 17:55 Toradol IVPUSH 12/13/18 17:22 30 mg ONETIME ONE Administration Metoclopramide HCl 10 mg 12/13/18 17:21 12/13/18 17:58 Reglan IV 12/13/18 17:22 10 mg ONETIME ONE Administration Ondansetron HCl 4 mg 12/13/18 17:21 12/13/18 17:54 Zofran IVPUSH 12/13/18 17:22 4 mg ONETIME ONE Administration Departure - Departure Time of Disposition: 18:32 Disposition: Home, Self-Care 01 Clinical Impression: Migraine Qualifiers: Migraine type: without aura Status migrainosus presence: without status migrainosus Intractability: not intractable Qualified Code(s): G43.009 - Migraine without aura, not intractable, without status migrainosus - Discharge Information Instructions: Migraine Headache, [id number] Referrals: PCP,Unknown [Primary Care Provider] - Forms: ED Department Discharge Additional Instructions: The following information is given to patients seen in the emergency department who are being discharged to home. This information is to outline your options for follow-up care. We provide all patients seen in our emergency department with a follow-up referral. The need for follow-up, as well as the timing and circumstances, are variable depending upon the specifics of your emergency department visit. If you don't have a primary care physician on staff, we will provide you with a referral. We always advise you to contact your personal physician following an emergency department visit to inform them of the circumstance of the visit and for follow-up with them and/or the need for any referrals to a consulting specialist. The emergency department will also refer you to a specialist when appropriate. This referral assures that you have the opportunity for follow-up care with a specialist. All of these measure are taken in an effort to provide you with optimal care, which includes your follow-up. Under all circumstances we always encourage you to contact your private physician who remains a resource for coordinating your care. When calling for follow-up care, please make the office aware that this follow-up is from your recent emergency room visit. If for any reason you are refused follow-up, please contact the [facility] Emergency Department at and asked to speak to the emergency department charge nurse. [facility] Primary Care [address] [place] [id number] [facility] [address] [place] [id number] 1. Please call the aerosol line operator/specialist you've been working with on Friday to schedule an expedited follow-up appointment 2. Keep your scheduled MRI of the brain. 3. Try to get your prescription filled through another pharmacy and start tomorrow. 4. Follow-up with your primary care provider as we discussed. Return to the ED as needed and as discussed.
[2018-12-13] MEDS ORDERED: Ondansetron 4 MG/2 ML SDV IVPUSH ONE (17:21)
[2018-12-13] MEDS ORDERED: Sodium Chloride 0.9% 1,000 ML IV ONE (17:21)
[2018-12-13] MEDS ORDERED: Ketorolac 30 MG/ML SDV IVPUSH ONE (17:21)
[2018-12-13] MEDS ORDERED: diphenhydrAMINE 50 MG/ML SDV IVPUSH ONE (17:21)
[2018-12-13] MEDS ORDERED: Metoclopramide 10 MG/2 ML SDV IV ONE (17:21)
[2018-12-13] MEDS ORDERED: carBAMazepine 100 MG Cap.ER PO ONE (18:29)
[2018-12-13 19:27] VITALS: BP 157/88
== END 2018-12-13 19:29 | disposition home or self-care (01) ==
LOC: MW.ED 16:49
DX: G43.009 Migraine without aura, not intractable, without status migrainosus (principal); I10 Essential (primary) hypertension; K21.9 Gastro-esophageal reflux disease without esophagitis; Z79.899 Other long term (current) drug therapy; Z88.2 Allergy status to sulfonamides
CPT/HCPCS: 96361; 96374; 96375; 99283; A9270; J1200; J1885; J2405; J2765; J7040; J2060

== ENCOUNTER 2018-12-14 21:13 | Emergency (ER) | payer BC ==
[2018-12-14] MEDS ORDERED: Sodium Chloride 0.9% 1,000 ML IV ONE (21:29)
[2018-12-14] MEDS ORDERED: Ondansetron 4 MG/2 ML SDV IVPUSH ONE (21:29)
[2018-12-14] MEDS ORDERED: Ketorolac 30 MG/ML SDV IVPUSH ONE (21:29)
[2018-12-14] MEDS ORDERED: Metoclopramide 10 MG/2 ML SDV IV ONE (21:29)
[2018-12-14] MEDS ORDERED: diphenhydrAMINE 50 MG/ML SDV IVPUSH ONE (21:29)
--- NOTE | 2018-12-14 21:32 | EDM.PDOC ---
ED HPI GENERAL MEDICAL PROBLEM - General Chief Complaint: Headache Stated Complaint: HEADACHE Time Seen by Provider: 12/14/18 21:21 - History of Present Illness INITIAL COMMENTS - FREE TEXT/NARRATIVE: HISTORY AND PHYSICAL: History of present illness: Patient is 53-year-old white female presents with a concern of headache she has history of chronic headaches and is in the process of her logical evaluation she has had MRI of her brain and workup that is been nondiagnostic to date. She denies trauma fever chills neurological signs or symptoms apart from headache. Review of systems: As per history of present illness and below otherwise all systems reviewed and negative. Past medical history: As per history of present illness and as reviewed below otherwise noncontributory. Surgical history: As per history of present illness and as reviewed below otherwise noncontributory. Social history: No reported history of drug or alcohol abuse. Family history: As per history of present illness and as reviewed below otherwise noncontributory. Physical exam: HEENT: Atraumatic, normocephalic, pupils reactive, negative for conjunctival pallor or scleral icterus, mucous membranes moist, throat clear, neck supple, nontender, trachea midline. Lungs: Clear to auscultation, breath sounds equal bilaterally, chest nontender. Heart: S1S2, regular, negative for clicks, rubs, or JVD. Abdomen: Soft, nondistended, nontender. Negative for masses or hepatosplenomegaly. Negative for costovertebral tenderness. Pelvis: Stable nontender. Genitourinary: Deferred. Rectal: Deferred. Extremities: Atraumatic, negative for cords or calf pain. Neurovascular unremarkable. Neuro: Awake, alert, oriented. Cranial nerves II through XII unremarkable. Cerebellum unremarkable. Motor and sensory unremarkable throughout. Exam nonfocal. Diagnostics: None Therapeutics: Saline 1 L bolus and Toradol 30 mg IV Zofran 4 mg IV Reglan 10 mg IV Benadryl 50 mg IV Impression: #1 chronic headache probable migraine Definitive disposition and diagnosis as appropriate pending reevaluation and review of above. Head Pain Score (Numeric/FACES): 10 - Related Data Allergies Allergy/AdvReac Type Severity Reaction Status Date / Time Sulfa (Sulfonamide Allergy Rash Verified 12/14/18 21:24 Antibiotics) Home Meds: Home Meds Losartan [Cozaar] 25 mg PO DAILY 12/01/18 [History] Losartan [Cozaar] 50 mg PO DAILY 12/01/18 [History] Calc/D3/Mag/Zn/Rating Specialist/Gutierrez/[place] [Calcium 600 MG Plus Vit D] 1 each PO DAILY [History] Lutein/Minerals/Vit A,C & E [Ocuvite] 1 tab PO DAILY 12/09/18 [History] Carvedilol 12.5 mg PO BID 12/14/18 [History] Chlorthalidone 25 mg PO ACBREAKFAST 12/14/18 [History] carBAMazepine [Carbamazepine] 100 mg PO BID 12/14/18 [History] Past Medical History HEENT History: Reports: None Cardiovascular History: Reports: None, Hypertension Respiratory History: Reports: None Gastrointestinal History: Reports: GERD Genitourinary History: Reports: Renal Calculus 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 Musculoskeletal History: Reports: Other (See Below) Other Musculoskeletal History: back and leg spasms Neurological History: Reports: None, Migraines Psychiatric History: Reports: None Endocrine/Metabolic History: Reports: Obesity/BMI 30+ Hematologic History: Reports: None Immunologic History: Reports: None Oncologic (Cancer) History: Reports: None Dermatologic History: Reports: None - Infectious Disease History Infectious Disease History: Reports: None - Past Surgical History Head Surgeries/Procedures: Reports: None HEENT Surgical History: Reports: Adenoidectomy, Naso-Sinus Surgery, Oral Surgery , Tonsillectomy Other HEENT Surgeries/Procedures: hx of fx orbit from being hit by a softball Cardiovascular Surgical History: Reports: None Respiratory Surgical History: Reports: None GI Surgical History: Reports: Appendectomy, Cholecystectomy, Colonoscopy Female Surgical History: Reports: Dilitation & Evacuation, Kidney stone extraction Endocrine Surgical History: Reports: None Neurological Surgical History: Reports: None Musculoskeletal Surgical History: Reports: None Oncologic Surgical History: Reports: None Dermatological Surgical History: Reports: None - History Comment History Comment: etoh "1-2x a week" Social & Family History - Family History Family Medical History: Noncontributory - Tobacco Use Smoking Status *Q: Never Smoker - Caffeine Use Caffeine Use: Reports: Coffee - Recreational Drug Use Recreational Drug Use: No ED ROS GENERAL - Review of Systems Review Of Systems: ROS reveals no pertinent complaints other than HPI. ED EXAM, GENERAL - Physical Exam Exam: See Below (dictation) Course - Vital Signs Last Recorded V/S: Last Vital Signs Temp 36.6 C 12/14/18 23:34 Pulse 59 L 12/14/18 23:34 Resp 18 12/14/18 23:34 BP 181/101 H 12/14/18 23:34 Pulse Ox 98 12/14/18 23:34 - Orders/Labs/Meds Meds: Medications Discontinued Medications Generic Name Dose Route Start Last Admin Trade Name Debora PRN Reason Stop Dose Admin Diphenhydramine HCl 50 mg 12/14/18 21:29 12/14/18 21:40 Benadryl IVPUSH 12/14/18 21:30 50 mg ONETIME ONE Administration Sodium Chloride 1,000 mls @ 999 mls/hr 12/14/18 21:29 12/14/18 21:37 Normal Saline IV 12/14/18 22:29 999 mls/hr STAT ONE Administration Ketorolac Tromethamine 30 mg 12/14/18 21:29 12/14/18 21:39 Toradol IVPUSH 12/14/18 21:30 30 mg ONETIME ONE Administration Metoclopramide HCl 10 mg 12/14/18 21:29 12/14/18 21:42 Reglan IV 12/14/18 21:30 10 mg ONETIME ONE Administration Ondansetron HCl 4 mg 12/14/18 21:29 12/14/18 21:38 Zofran IVPUSH 12/14/18 21:30 4 mg ONETIME ONE Administration Departure - Departure Time of Disposition: 23:48 Disposition: Home, Self-Care 01 Condition: Good Clinical Impression: Cephalgia Qualifiers: Headache type: unspecified Headache chronicity pattern: acute headache Intractability: intractable Qualified Code(s): R51 - Headache - Discharge Information Referrals: PCP,None [Primary Care Provider] - Forms: ED Department Discharge Additional Instructions: The following information is given to patients seen in the emergency department who are being discharged to home. This information is to outline your options for follow-up care. We provide all patients seen in our emergency department with a follow-up referral. The need for follow-up, as well as the timing and circumstances, are variable depending upon the specifics of your emergency department visit. If you don't have a primary care physician on staff, we will provide you with a referral. We always advise you to contact your personal physician following an emergency department visit to inform them of the circumstance of the visit and for follow-up with them and/or the need for any referrals to a consulting specialist. The emergency department will also refer you to a specialist when appropriate. This referral assures that you have the opportunity for followup care with a specialist. All of these measure are taken in an effort to provide you with optimal care, which includes your followup. Under all circumstances we always encourage you to contact your private physician who remains a resource for coordinating your care. When calling for followup care, please make the office aware that this follow-up is from your recent emergency room visit. If for any reason you are refused follow-up, please contact the [facility] emergency department at and asked to speak to the emergency department charge nurse. Current medications follow-up primary medical doctor BALTAZAR as discussed return as needed as discussed
[2018-12-15] MEDS ORDERED: hydrALAZINE 20 MG/ML SDV IVPUSH ONE (00:04)
[2018-12-15 00:34] VITALS: BP 140/72
== END 2018-12-15 00:32 | disposition home or self-care (01) ==
LOC: MW.ED 21:13
DX: R51 Headache (principal); I10 Essential (primary) hypertension; E66.9 Obesity, unspecified; Z98.890 Other specified postprocedural states; Z90.49 Acquired absence of other specified parts of digestive tract; Z88.2 Allergy status to sulfonamides
CPT/HCPCS: 82570; 96361; 96374; 96375; 99283; J0360; J1200; J1885; J2405; J2765; J7040

== ENCOUNTER 2019-09-07 18:08 | Observation (INO) | payer BC ==
[2019-09-07] MEDS ORDERED: Sodium Chloride 0.9% 1,000 ML IV ONE (18:17)
[2019-09-07] MEDS ORDERED: metroNIDAZOLE/Normal Saline 500 MG in Premix Bag 1 BAG IV ONE (18:18)
--- NOTE | 2019-09-07 18:24 | EDM.PDOC ---
ED HPI GENERAL MEDICAL PROBLEM - General Stated Complaint: ABODOMINAL PAIN Time Seen by Provider: 09/07/19 18:14 - History of Present Illness INITIAL COMMENTS - FREE TEXT/NARRATIVE: General adult HISTORY AND PHYSICAL: Patient 54-year-old white female presents with concern of left lower quadrant abdominal pain worse over last [address] is now patient did demonstrate diverticulitis he's had nausea no vomiting no reported fever chills or other complaints she has had a history of urolithiasis UA is now patient was negative and she is no urinary symptoms. History of present illness: [] Review of systems: As per history of present illness and below otherwise all systems reviewed and negative. Past medical history: As per history of present illness and as reviewed below otherwise noncontributory. Surgical history: As per history of present illness and as reviewed below otherwise noncontributory. Social history: No reported history of drug or alcohol abuse. Family history: As per history of present illness and as reviewed below otherwise noncontributory. Physical exam: HEENT: Atraumatic, normocephalic, pupils reactive, negative for conjunctival pallor or scleral icterus, mucous membranes moist, throat clear, neck supple, nontender, trachea midline. Lungs: Clear to auscultation, breath sounds equal bilaterally, chest nontender. Heart: S1S2, regular, negative for clicks, rubs, or JVD. Abdomen: Soft, nondistended, tenderness in left lower quadrant to deep palpation mild guarding no rebound. Negative for masses or hepatosplenomegaly. Negative for costovertebral tenderness. Pelvis: Stable nontender. Genitourinary: Deferred. Rectal: Deferred. Extremities: Atraumatic, negative for cords or calf pain. Neurovascular unremarkable. Neuro: Awake, alert, oriented. Cranial nerves II through XII unremarkable. Cerebellum unremarkable. Motor and sensory unremarkable throughout. Exam nonfocal. Diagnostics: CBC CMP UA blood culture 2 Therapeutics: Saline 1 L bolus Cipro 400 mg IV Flagyl 500 mg IV Impression: #1 acute diverticulitis Definitive disposition and diagnosis as appropriate pending reevaluation and review of a - Related Data Allergies Allergy/AdvReac Type Severity Reaction Status Date / Time Sulfa (Sulfonamide Allergy Rash Verified 12/14/18 21:24 Antibiotics) Home Meds: Home Meds Losartan [Cozaar] 25 mg PO DAILY 12/01/18 [History] Losartan [Cozaar] 50 mg PO DAILY 12/01/18 [History] Calc/D3/Mag/Zn/Dagoberto/Gutierrez/[place] [Calcium 600 MG Plus Vit D] 1 each PO DAILY 12/09 [History] Lutein/Minerals/Vit A,C & E [Ocuvite] 1 tab PO DAILY 12/09/18 [History] Chlorthalidone 25 mg PO ACBREAKFAST 12/14/18 [History] carBAMazepine [Carbamazepine] 100 mg PO BID 12/14/18 [History] carvediloL [Carvedilol] 12.5 mg PO BID 12/14/18 [History] Past Medical History HEENT History: Reports: None Cardiovascular History: Reports: None, Hypertension Respiratory History: Reports: None Gastrointestinal History: Reports: GERD Genitourinary History: Reports: Renal Calculus 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 Musculoskeletal History: Reports: Other (See Below) Other Musculoskeletal History: back and leg spasms Neurological History: Reports: None, Migraines Psychiatric History: Reports: None Endocrine/Metabolic History: Reports: Obesity/BMI 30+ Hematologic History: Reports: None Immunologic History: Reports: None Oncologic (Cancer) History: Reports: None Dermatologic History: Reports: None - Infectious Disease History Infectious Disease History: Reports: None - Past Surgical History Head Surgeries/Procedures: Reports: None HEENT Surgical History: Reports: Adenoidectomy, Naso-Sinus Surgery, Oral Surgery , Tonsillectomy Other HEENT Surgeries/Procedures: hx of fx orbit from being hit by a softball Cardiovascular Surgical History: Reports: None Respiratory Surgical History: Reports: None GI Surgical History: Reports: Appendectomy, Cholecystectomy, Colonoscopy Female Surgical History: Reports: Dilitation & Evacuation, Kidney stone extraction Endocrine Surgical History: Reports: None Neurological Surgical History: Reports: None Musculoskeletal Surgical History: Reports: None Oncologic Surgical History: Reports: None Dermatological Surgical History: Reports: None - History Comment History Comment: etoh "1-2x a week" Social & Family History - Family History Family Medical History: Noncontributory - Caffeine Use Caffeine Use: Reports: Coffee ED ROS GENERAL - Review of Systems Review Of Systems: Comprehensive ROS is negative, except as noted in HPI. ED EXAM, GENERAL - Physical Exam Exam: See Below (dictation) Course - Orders/Labs/Meds Orders: Active Orders 24 hr Category Date Time Status CBC WITH AUTO DIFF [HEME] Stat Lab 09/07/19 18:16 Ordered COMPREHENSIVE METABOLIC PN,CMP [CHEM] Stat Lab 09/07/19 18:16 Ordered CULTURE BLOOD [BC] Stat Lab 09/07/19 18:17 Ordered CULTURE BLOOD [BC] Stat Lab 09/07/19 18:17 Ordered INR,PT,PROTHROMBIN TIME [COAG] Stat Lab 09/07/19 18:17 Ordered UA RFX SARBJIT AND CULT IF INDIC [URIN] Stat Lab 09/07/19 18:17 Ordered Ciprofloxacin in D5W [Cipro in D5W 400 MG/200 ML] 400 Med 09/07/19 18:30 Ordered mg Premix Bag 1 bag IV Q12H Sodium Chloride 0.9% [Normal Saline] 1,000 ml Med 09/07/19 18:17 Ordered IV STAT metroNIDAZOLE/Normal Saline [Flagyl 500 MG in NS 100 ML Med 09/07/19 18:18 Ordered ] 500 mg Premix Bag 1 bag IV ONETIME Blood Culture x2 Reflex Set [OM.PC] Stat Oth 09/07/19 18:17 Ordered Medication Orders Ciprofloxacin/Dextrose 400 mg/ (Premix) 200 mls @ 200 mls/hr IV Q12H EFFIE Metronidazole 500 mg/ Premix 100 mls @ 100 mls/hr IV ONETIME ONE Stop: 09/07/19 19:17 Sodium Chloride (Normal Saline) 1,000 mls @ 999 mls/hr IV STAT ONE Stop: 09/07/19 19:17 Meds: Medications Generic Name Dose Route Start Last Admin Trade Name Freq PRN Reason Stop Dose Admin Ciprofloxacin/Dextrose 400 mg/ 200 mls @ 200 mls/hr 09/07/19 18:30 Premix IV Q12H EFFIE Metronidazole 500 mg/ Premix 100 mls @ 100 mls/hr 09/07/19 18:18 IV 09/07/19 19:17 ONETIME ONE Sodium Chloride 1,000 mls @ 999 mls/hr 09/07/19 18:17 Normal Saline IV 09/07/19 19:17 STAT ONE Departure - Departure Time of Disposition: 18:22 Disposition: Refer to Observation Condition: Good Clinical Impression: Abdominal pain, Diverticulitis - Discharge Information Referrals: Kailyn Portillo MD [Primary Care Provider] - - My Orders Last 24 Hours: My Active Orders 09/07/19 18:16 CBC WITH AUTO DIFF [HEME] Stat COMPREHENSIVE METABOLIC PN,CMP [CHEM] Stat 09/07/19 18:17 CULTURE BLOOD [BC] Stat CULTURE BLOOD [BC] Stat INR,PT,PROTHROMBIN TIME [COAG] Stat UA RFX SARBJIT AND CULT IF INDIC [URIN] Stat Sodium Chloride 0.9% [Normal Saline] 1,000 ml IV STAT Blood Culture x2 Reflex Set [OM.PC] Stat 09/07/19 18:18 metroNIDAZOLE/Normal Saline [Flagyl 500 MG in NS 100 ML] 500 mg Premix Bag 1 bag IV ONETIME 09/07/19 18:30 Ciprofloxacin in D5W [Cipro in D5W 400 MG/200 ML] 400 mg Premix Bag 1 bag IV Q12H - Assessment/Plan Last 24 Hours: My Active Orders 09/07/19 18:16 CBC WITH AUTO DIFF [HEME] Stat COMPREHENSIVE METABOLIC PN,CMP [CHEM] Stat 09/07/19 18:17 CULTURE BLOOD [BC] Stat CULTURE BLOOD [BC] Stat INR,PT,PROTHROMBIN TIME [COAG] Stat UA RFX SARBJIT AND CULT IF INDIC [URIN] Stat Sodium Chloride 0.9% [Normal Saline] 1,000 ml IV STAT Blood Culture x2 Reflex Set [OM.PC] Stat 09/07/19 18:18 metroNIDAZOLE/Normal Saline [Flagyl 500 MG in NS 100 ML] 500 mg Premix Bag 1 bag IV ONETIME 09/07/19 18:30 Ciprofloxacin in D5W [Cipro in D5W 400 MG/200 ML] 400 mg Premix Bag 1 bag IV Q12H
[2019-09-07] MEDS ORDERED: metroNIDAZOLE/Normal Saline 100 ML ONE (18:34)
[2019-09-07] MEDS: Ciprofloxacin in D5W 400 MG in Premix Bag 1 BAG IV SCH ×2 (18:39)
[2019-09-07 19:06] LABS: CARBON DIOXIDE,CO2 28.3 mmol/L (21.0-32.0); POTASSIUM,K 2.5 mmol/L (3.5-5.1)
[2019-09-07] MEDS ORDERED: Ondansetron 4 MG Tab.DIS PO PRN (19:24)
[2019-09-07] MEDS ORDERED: Ondansetron 4 MG/2 ML SDV IVPUSH PRN (19:24)
[2019-09-07] MEDS ORDERED: Potassium Chloride Riders 40 MEQ in Premix Bag 1 BAG IV ONE (19:32)
[2019-09-07] MEDS ORDERED: Potassium Chloride 20 MEQ Tab.ER PO ONE (19:33)
--- NOTE | 2019-09-07 19:44 | PCM.HP.2 ---
H&P History of Present Illness - General Date of Service: 09/07/19 Admit Problem/Dx: Admission Diagnosis/Problem Admission Diagnosis/Problem Diverticulitis Source of Information: Patient History Limitations: Reports: No Limitations - History of Present Illness Initial Comments - Free Text/Narative: 54-year-old female presents to ER with complaints of LLQ abdominal pain that started earlier this morning. She has a PMH of HTN, hyperlipidemia and kidney stones. Patient reports that she was at urologist Dr. Estrada's office this morning because she thought she had a kidney stone. CT scan was ordered which showed mild acute diverticulitis. She was then called by Dr. Estrada to go to the ER for further evaluation. Patient reports that she has had nausea as well. Denies fevers, chills, blurry vision, sore throat, shortness of breath, chest pain, vomiting, diarrhea, numbness or tingling in extremities. No decreased appetite. Non-smoker and drinks alcohol socially. In the ER, patient's WBC count was 16, potassium 2.5 and creatinine 1.2. Patient received 1 L IV NS bolus and 1 dose of cipro and flagyl. Abdomen Pain Score (Numeric/FACES): 3 - Related Data Allergies/Adverse Reactions: Allergies Allergy/AdvReac Type Severity Reaction Status Date / Time Sulfa (Sulfonamide Allergy Rash Verified 09/07/19 18:21 Antibiotics) Home Medications: Home Meds Calc/D3/Mag/Zn/Dagoberto/Gutierrez/[place] [Calcium 600 MG Plus Vit D] 1 each PO DAILY 12/09 [History] Lutein/Minerals/Vit A,C & E [Ocuvite] 1 tab PO DAILY 12/09/18 [History] Chlorthalidone 25 mg PO ACBREAKFAST 12/14/18 [History] carBAMazepine [Carbamazepine] 100 mg PO BID 12/14/18 [History] carvediloL [Carvedilol] 12.5 mg PO TID 12/14/18 [History] Past Medical History HEENT History: Reports: None Cardiovascular History: Reports: None, Hypertension Respiratory History: Reports: None Gastrointestinal History: Reports: GERD Genitourinary History: Reports: Renal Calculus 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 Musculoskeletal History: Reports: Other (See Below) Other Musculoskeletal History: back and leg spasms Neurological History: Reports: None, Migraines Psychiatric History: Reports: None Endocrine/Metabolic History: Reports: Obesity/BMI 30+ Hematologic History: Reports: None Immunologic History: Reports: None Oncologic (Cancer) History: Reports: None Dermatologic History: Reports: None - Infectious Disease History Infectious Disease History: Reports: Chicken Pox - Past Surgical History Head Surgeries/Procedures: Reports: None HEENT Surgical History: Reports: Adenoidectomy, Naso-Sinus Surgery, Oral Surgery , Tonsillectomy Other HEENT Surgeries/Procedures: hx of fx orbit from being hit by a softball Cardiovascular Surgical History: Reports: None Respiratory Surgical History: Reports: None GI Surgical History: Reports: Appendectomy, Cholecystectomy, Colonoscopy Female Surgical History: Reports: Dilitation & Evacuation, Kidney stone extraction Endocrine Surgical History: Reports: None Neurological Surgical History: Reports: None Musculoskeletal Surgical History: Reports: None Oncologic Surgical History: Reports: None Dermatological Surgical History: Reports: None - History Comment History Comment: etoh "1-2x a week" Social & Family History - Family History Family Medical History: Noncontributory - Tobacco Use Smoking Status *Q: Never Smoker - Caffeine Use Caffeine Use: Reports: None - Recreational Drug Use Recreational Drug Use: No H&P Review of Systems - Review of Systems: Review Of Systems: Comprehensive ROS is negative, except as noted in HPI. Exam - Exam Exam: See Below - Vital Signs Vital Signs: Last Vital Signs Temp 99.9 F 09/07/19 18:23 Pulse 77 09/07/19 18:23 Resp 17 09/07/19 18:23 BP 120/69 09/07/19 18:23 Pulse Ox 96 09/07/19 18:23 Weight: 200 lb - Exam General: Alert, Oriented, Cooperative, Other (NAD) HEENT: Conjunctiva Clear, EOMI, Hearing Intact, Mucosa Moist & Kaser, Posterior Pharynx Clear Neck: Supple, Trachea Midline Lungs: Clear to Auscultation, Normal Respiratory Effort Cardiovascular: Regular Rate, Regular Rhythm GI/Abdominal Exam: Normal Bowel Sounds, Soft, No Distention, Other (mild LLQ ttp ) Extremities: Normal Inspection, No Pedal Edema Peripheral Pulses: 2+: Radial (L), Radial (R) Skin: Warm, Dry, Intact Neurological: Cranial Nerves Intact, Strength Equal Bilateral, Normal Speech, Normal Tone Neuro Extensive - Mental Status: Alert, Oriented x3, Normal Mood/Affect - Patient Data Lab Results Last 24 hrs: Laboratory Results - last 24 hr 09/07/19 09/07/19 09/07/19 Range/Units 18:21 18:21 18:21 WBC 16.35 H (4.0-11.0) K/uL RBC 4.31 (4.30-5.90) M/uL Hgb 13.1 (12.0-16.0) g/dL Hct 37.7 (36.0-46.0) % MCV 87.5 (80.0-98.0) fL MCH 30.4 (27.0-32.0) pg MCHC 34.7 (31.0-37.0) g/dL RDW Std Deviation 41.2 (28.0-62.0) fl RDW Coeff of Cecelia 13 (11.0-15.0) % Plt Count 314 (150-400) K/uL MPV 11.20 (7.40-12.00) fL Neut % (Auto) 76.6 (48.0-80.0) % Lymph % (Auto) 14.4 L (16.0-40.0) % Ocean % (Auto) 8.3 (0.0-15.0) % Eos % (Auto) 0.6 (0.0-7.0) % Baso % (Auto) 0.1 (0.0-1.5) % Neut # (Auto) 12.5 H (1.4-5.7) K/uL Lymph # (Auto) 2.4 (0.6-2.4) K/uL Ocean # (Auto) 1.4 H (0.0-0.8) K/uL Eos # (Auto) 0.1 (0.0-0.7) K/uL Baso # (Auto) 0.0 (0.0-0.1) K/uL Nucleated RBC % 0.0 /100WBC Nucleated RBCs # 0 K/uL INR 1.07 Sodium 140 (136-145) mmol/L Potassium 2.5 L (3.5-5.1) mmol/L Chloride 101 (98-107) mmol/L Carbon Dioxide 28.3 (21.0-32.0) mmol/L BUN 22 H (7.0-18.0) mg/dL Creatinine 1.2 H (0.6-1.0) mg/dL Est Cr Clr Drug Dosing 52.12 mL/min Estimated GFR (MDRD) 46.8 ml/min Glucose 113 H (74-106) mg/dL Calcium 9.0 (8.5-10.1) mg/dL Total Bilirubin 0.5 (0.2-1.0) mg/dL AST 26 (15-37) IU/L ALT 46 (14-63) IU/L Alkaline Phosphatase 66 (46-116) U/L Total Protein 7.9 (6.4-8.2) g/dL Albumin 3.8 (3.4-5.0) g/dL Globulin 4.1 H (2.6-4.0) g/dL Albumin/Globulin Ratio 0.9 (0.9-1.6) Result Diagrams: 09/07/19 18:21 09/07/19 18:21 Sepsis Event Note - Evaluation Sepsis Screening Result: No Definite Risk - Focused Exam Vital Signs: Vital Signs Temp Pulse Resp BP Pulse Ox 09/07/19 18:23 99.9 F 77 17 120/69 96 Date Exam was Performed: 09/07/19 Time Exam was Performed: 19:37 Problem List Initiated/Reviewed/Updated: Yes Orders Last 24hrs: Active Orders 24 hr Category Date Time Status Patient Status [ADT] Stat ADT 09/07/19 18:26 Active Oxygen Therapy [RC] PRN Care 09/07/19 19:24 Active Up ad Yessica [RC] ASDIRECTED Care 09/07/19 19:24 Active VTE/DVT Education [RC] PER UNIT ROUTINE Care 09/07/19 19:24 Active Vital Signs [RC] Q4H Care 09/07/19 19:24 Active Clear Liquid Diet [DIET] Diet 09/07/19 Dinner Active CBC WITH AUTO DIFF [HEME] AM Lab 09/08/19 05:11 Ordered COMPREHENSIVE METABOLIC PN,CMP [CHEM] AM Lab 09/08/19 05:11 Ordered CULTURE BLOOD [BC] Stat Lab 09/07/19 18:46 Received CULTURE BLOOD [BC] Stat Lab 09/07/19 19:00 Received UA RFX SARBJIT AND CULT IF INDIC [URIN] Stat Lab 09/07/19 18:17 Ordered Acetaminophen [Tylenol] Med 09/07/19 19:24 Active 650 mg PO Q4H PRN Ciprofloxacin in D5W [Cipro in D5W 400 MG/200 ML] 400 Med 09/07/19 18:30 Active mg Premix Bag 1 bag IV Q12H Heparin Sodium Med 09/07/19 22:00 Active 5,000 units SUBCUT Q8H Ondansetron [Zofran ODT] Med 09/07/19 19:24 Active 4 mg PO Q4H PRN Ondansetron [Zofran] Med 09/07/19 19:24 Active 4 mg IVPUSH Q4H PRN Potassium Chloride Riders [KCL 40 MEQ in Water 100 ML] Med 09/07/19 19:32 Ordered 40 meq Premix Bag 1 bag IV ONETIME Sodium Chloride 0.9% [Normal Saline] 1,000 ml Med 09/07/19 19:30 Active IV ASDIRECTED metroNIDAZOLE/Normal Saline [Flagyl 500 MG in NS 100 ML Med 09/07/19 19:30 Ordered ] 500 mg Premix Bag 1 bag IV Q6H Blood Culture x2 Reflex Set [OM.PC] Stat Oth 09/07/19 18:17 Ordered Resuscitation Status Routine Resus Stat 09/07/19 19:24 Ordered Medication Orders Acetaminophen (Tylenol) 650 mg PO Q4H PRN PRN Reason: Pain (Mild 1-3)/fever Heparin Sodium (Porcine) (Heparin Sodium) 5,000 units SUBCUT Q8H [facility] Ciprofloxacin/Dextrose 400 mg/ (Premix) 200 mls @ 200 mls/hr IV Q12H [facility] Last Admin: 09/07/19 18:39 Dose: 200 mls/hr Sodium Chloride (Normal Saline) 1,000 mls @ 125 mls/hr IV ASDIRECTED EFFIE Metronidazole 500 mg/ Premix 100 mls @ 100 mls/hr IV Q6H [facility] Potassium Chloride 40 meq/ (Premix) 100 mls @ 25 mls/hr IV ONETIME ONE Stop: 09/07/19 23:31 Ondansetron HCl (Zofran Odt) 4 mg PO Q4H PRN PRN Reason: nausea, able to take PO Ondansetron HCl (Zofran) 4 mg IVPUSH Q4H PRN PRN Reason: Nausea Assessment/Plan Comment:: Assessment and Plan: 1. Acute colonic diverticulitis: Will start on IV ciprofloxacin and flagyl. Received 1 L IV NS bolus and will continue maintenance IV NS 125 cc/hr. Clear liquid diet. WBC count was 16. Blood cultures pending. Patient is non-toxic appearing and VSS. No suspicion for sepsis at this time. Will monitor. 2. Hypokalemia: Potassium level 2.5 on admission. Replete with IV 40 mEq KCl and PO 40 mEq KCl. Will recheck with AM labs. 3. AURA: Continue IV NS 125 cc/hr. Received 1 L IV NS bolus in ER. 4. Past medical history of kidney stones, HTN and hyperlipidemia. 5. VTE prophylaxis: heparin.
[2019-09-07] MEDS: metroNIDAZOLE/Normal Saline 500 MG in Premix Bag 1 BAG IV SCH (20:03)
[2019-09-07] MEDS: Sodium Chloride 0.9% 1,000 ML IV SCH (20:11)
[2019-09-07] MEDS: Heparin Sodium 5,000 Units/ML Vial SUBCUT SCH (21:42)
[2019-09-07] MEDS: Acetaminophen 325 MG Tab PO PRN (21:43)
[2019-09-08] MEDS: metroNIDAZOLE/Normal Saline 500 MG in Premix Bag 1 BAG IV SCH ×2 (00:59→09:21)
[2019-09-08] MEDS: Sodium Chloride 0.9% 1,000 ML IV SCH (04:14)
[2019-09-08] MEDS: Acetaminophen 325 MG Tab PO PRN ×2 (04:14→09:29)
[2019-09-08] MEDS: Ciprofloxacin in D5W 400 MG in Premix Bag 1 BAG IV SCH ×2 (06:24)
[2019-09-08] MEDS: Heparin Sodium 5,000 Units/ML Vial SUBCUT SCH (06:24)
[2019-09-08 06:49] LABS: CARBON DIOXIDE,CO2 27.1 mmol/L (21.0-32.0)
[2019-09-08] MEDS ORDERED: Potassium Chloride 20 MEQ Tab.ER PO ONE (07:37)
[2019-09-08 08:12] VITALS: BP 119/71; PULSE 71
--- NOTE | 2019-09-08 10:33 | PCM.DCSUM1 ---
<Ruddy Cline - Last Filed: 09/08/19 11:09> Discharge Summary - Hospital Course Free Text/Narrative:: 54-year-old female admitted for acute colonic diverticulitis. Patient has a PMH of HTN, hyperlipidemia and kidney stones. CT scan done earlier on day of admission showed mild diverticulitis. Patient had been experiencing LLQ pain and nausea for one day. WBC count was 16 on admission. Patient was hemodynamically stable, afebrile and non-toxic appearing. She was treated with IV cipro and flagyl, started on IV fluids and her potassium was repleted. Patient reported feeling better the following morning with only minimal pain. She was discharged on 10 day course of ciprofloxacin and metronidazole. She was also advised to follow-up with her PCP to have her potassium level rechecked. Furthermore, follow-up appointment with general surgeon Dr. Wesftall was made for repeat colonoscopy. Patient discharged in stale condition and tolerating PO diet. - Discharge Data Discharge Date: 09/08/19 Discharge Disposition: Home, Self-Care 01 Condition: Stable - Referral to Home Health Primary Care Physician: Kailyn Portillo MD - Patient Instructions Diet: Usual Diet as Tolerated Activity: As Tolerated Notify Provider of: Fever, Increased Pain, Swelling and Redness, Drainage, Nausea and/or Vomiting - Discharge Plan *PRESCRIPTION DRUG MONITORING PROGRAM REVIEWED*: Not Applicable *COPY OF PRESCRIPTION DRUG MONITORING REPORT IN PATIENT AMITA: Not Applicable Prescriptions/Med Rec: Ciprofloxacin HCl [Cipro] 500 mg PO BID 10 Days #20 tablet metroNIDAZOLE [Metronidazole] 500 mg PO Q6H 10 Days #40 tablet Home Medications: Home Meds Calc/D3/Mag/Zn/Dagoberto/Gutierrez/[place] [Calcium 600 MG Plus Vit D] 1 each PO DAILY 12/09 [History] Lutein/Minerals/Vit A,C & E [Ocuvite] 1 tab PO DAILY 12/09/18 [History] Chlorthalidone 25 mg PO ACBREAKFAST 12/14/18 [History] carvediloL [Carvedilol] 12.5 mg PO TID 12/14/18 [History] Ciprofloxacin HCl [Cipro] 500 mg PO BID 10 Days #20 tablet 09/08/19 [Rx] metroNIDAZOLE [Metronidazole] 500 mg PO Q6H 10 Days #40 tablet 09/08/19 [Rx] Oxygen Therapy Mode: Room Air Patient Handouts: Diverticulitis, [id number], Ciprofloxacin tablets, Metronidazole tablets or capsules Referrals: Kailyn Portillo MD [Primary Care Provider] - 09/15/19 12:45 pm - Discharge Summary/Plan Comment DC Time >30 min.: No - Patient Data Vitals - Most Recent: Last Vital Signs Temp 98.4 F 09/08/19 08:00 Pulse 71 09/08/19 08:00 Resp 17 09/08/19 08:00 BP 119/71 09/08/19 08:00 Pulse Ox 96 09/08/19 08:00 Weight - Most Recent: 91 kg I&O - Last 24 hours: Intake & Output 09/07/19 09/08/19 09/08/19 22:59 06:59 14:59 Intake Total 1400 1756 Output Total 1300 Balance 1400 456 Lab Results - Last 24 hrs: Laboratory Results - last 24 hr 09/07/19 09/07/19 09/07/19 Range/Units 18:21 18:21 18:21 WBC 16.35 H (4.0-11.0) K/uL RBC 4.31 (4.30-5.90) M/uL Hgb 13.1 (12.0-16.0) g/dL Hct 37.7 (36.0-46.0) % MCV 87.5 (80.0-98.0) fL MCH 30.4 (27.0-32.0) pg MCHC 34.7 (31.0-37.0) g/dL RDW Std Deviation 41.2 (28.0-62.0) fl RDW Coeff of Cecelia 13 (11.0-15.0) % Plt Count 314 (150-400) K/uL MPV 11.20 (7.40-12.00) fL Neut % (Auto) 76.6 (48.0-80.0) % Lymph % (Auto) 14.4 L (16.0-40.0) % Carter % (Auto) 8.3 (0.0-15.0) % Eos % (Auto) 0.6 (0.0-7.0) % Baso % (Auto) 0.1 (0.0-1.5) % Neut # (Auto) 12.5 H (1.4-5.7) K/uL Lymph # (Auto) 2.4 (0.6-2.4) K/uL Carter # (Auto) 1.4 H (0.0-0.8) K/uL Eos # (Auto) 0.1 (0.0-0.7) K/uL Baso # (Auto) 0.0 (0.0-0.1) K/uL Nucleated RBC % 0.0 /100WBC Nucleated RBCs # 0 K/uL INR 1.07 Sodium 140 (136-145) mmol/L Potassium 2.5 L (3.5-5.1) mmol/L Chloride 101 (98-107) mmol/L Carbon Dioxide 28.3 (21.0-32.0) mmol/L BUN 22 H (7.0-18.0) mg/dL Creatinine 1.2 H (0.6-1.0) mg/dL Est Cr Clr Drug Dosing 52.12 mL/min Estimated GFR (MDRD) 46.8 ml/min Glucose 113 H (74-106) mg/dL Calcium 9.0 (8.5-10.1) mg/dL Total Bilirubin 0.5 (0.2-1.0) mg/dL AST 26 (15-37) IU/L ALT 46 (14-63) IU/L Alkaline Phosphatase 66 (46-116) U/L Total Protein 7.9 (6.4-8.2) g/dL Albumin 3.8 (3.4-5.0) g/dL Globulin 4.1 H (2.6-4.0) g/dL Albumin/Globulin Ratio 0.9 (0.9-1.6) Urine Color Urine Appearance Urine pH (5.0-8.0) Ur Specific Coleman (1.001-1.035) Urine Protein (NEGATIVE) mg/dL Urine Glucose (UA) (NEGATIVE) mg/dL Urine Ketones (NEGATIVE) mg/dL Urine Occult Blood (NEGATIVE) Urine Nitrite (NEGATIVE) Urine Bilirubin (NEGATIVE) Urine Urobilinogen (<2.0) EU/dL Ur Leukocyte Esterase (NEGATIVE) Urine RBC (0-2/HPF) Urine WBC (0-5/HPF) Ur Epithelial Cells (NONE-FEW) Amorphous Sediment (NEGATIVE) Urine Bacteria (NEGATIVE) Urine Mucus (NONE-MOD) 09/07/19 09/08/19 09/08/19 Range/Units 19:15 06:13 06:13 WBC 10.85 (4.0-11.0) K/uL RBC 3.82 L (4.30-5.90) M/uL Hgb 11.5 L (12.0-16.0) g/dL Hct 33.7 L (36.0-46.0) % MCV 88.2 (80.0-98.0) fL MCH 30.1 (27.0-32.0) pg MCHC 34.1 (31.0-37.0) g/dL RDW Std Deviation 41.8 (28.0-62.0) fl RDW Coeff of Cecelia 13 (11.0-15.0) % Plt Count 266 (150-400) K/uL MPV 10.90 (7.40-12.00) fL Neut % (Auto) 63.7 (48.0-80.0) % Lymph % (Auto) 26.0 (16.0-40.0) % Carter % (Auto) 9.0 (0.0-15.0) % Eos % (Auto) 1.1 (0.0-7.0) % Baso % (Auto) 0.2 (0.0-1.5) % Neut # (Auto) 6.9 H (1.4-5.7) K/uL Lymph # (Auto) 2.8 H (0.6-2.4) K/uL Carter # (Auto) 1.0 H (0.0-0.8) K/uL Eos # (Auto) 0.1 (0.0-0.7) K/uL Baso # (Auto) 0.0 (0.0-0.1) K/uL Nucleated RBC % 0.0 /100WBC Nucleated RBCs # 0 K/uL INR Sodium 142 (136-145) mmol/L Potassium 3.0 L (3.5-5.1) mmol/L Chloride 107 (98-107) mmol/L Carbon Dioxide 27.1 (21.0-32.0) mmol/L BUN 16 (7.0-18.0) mg/dL Creatinine 1.0 (0.6-1.0) mg/dL Est Cr Clr Drug Dosing 62.54 mL/min Estimated GFR (MDRD) 57.8 ml/min Glucose 112 H (74-106) mg/dL Calcium 8.1 L (8.5-10.1) mg/dL Total Bilirubin 0.6 (0.2-1.0) mg/dL AST 25 (15-37) IU/L ALT 39 (14-63) IU/L Alkaline Phosphatase 54 (46-116) U/L Total Protein 6.4 (6.4-8.2) g/dL Albumin 2.9 L (3.4-5.0) g/dL Globulin 3.5 (2.6-4.0) g/dL Albumin/Globulin Ratio 0.8 L (0.9-1.6) Urine Color YELLOW Urine Appearance CLEAR Urine pH 6.0 (5.0-8.0) Ur Specific Coleman 1.015 (1.001-1.035) Urine Protein NEGATIVE (NEGATIVE) mg/dL Urine Glucose (UA) NEGATIVE (NEGATIVE) mg/dL Urine Ketones NEGATIVE (NEGATIVE) mg/dL Urine Occult Blood NEGATIVE (NEGATIVE) Urine Nitrite NEGATIVE (NEGATIVE) Urine Bilirubin NEGATIVE (NEGATIVE) Urine Urobilinogen 0.2 (<2.0) EU/dL Ur Leukocyte Esterase SMALL H (NEGATIVE) Urine RBC 0-2 (0-2/HPF) Urine WBC 8-12 (0-5/HPF) Ur Epithelial Cells FEW (NONE-FEW) Amorphous Sediment FEW (NEGATIVE) Urine Bacteria FEW (NEGATIVE) Urine Mucus FEW (NONE-MOD) Med Orders - Current: Current Medications Acetaminophen (Tylenol) 650 mg PO Q4H PRN PRN Reason: Pain (Mild 1-3)/fever Last Admin: 09/08/19 09:29 Dose: 650 mg Heparin Sodium (Porcine) (Heparin Sodium) 5,000 units SUBCUT Q8H [facility] Last Admin: 09/08/19 06:24 Dose: 5,000 units Ciprofloxacin/Dextrose 400 mg/ (Premix) 200 mls @ 200 mls/hr IV Q12H [facility] Last Admin: 09/08/19 06:24 Dose: 200 mls/hr Sodium Chloride (Normal Saline) 1,000 mls @ 125 mls/hr IV ASDIRECTED [facility] Last Admin: 09/08/19 04:14 Dose: 125 mls/hr Metronidazole 500 mg/ Premix 100 mls @ 100 mls/hr IV Q6H [facility] Last Admin: 09/08/19 09:21 Dose: 100 mls/hr Ondansetron HCl (Zofran Odt) 4 mg PO Q4H PRN PRN Reason: nausea, able to take PO Ondansetron HCl (Zofran) 4 mg IVPUSH Q4H PRN PRN Reason: Nausea Discontinued Medications Metronidazole 500 mg/ Premix 100 mls @ 100 mls/hr IV ONETIME ONE Stop: 09/07/19 19:17 Last Admin: 09/07/19 20:13 Dose: Not Given Sodium Chloride (Normal Saline) 1,000 mls @ 999 mls/hr IV STAT ONE Stop: 09/07/19 19:17 Last Admin: 09/07/19 18:40 Dose: 999 mls/hr Metronidazole (Flagyl 500 Mg In Ns 100 Ml) Confirm Administered Dose 100 mls @ as directed .ROUTE .STK-MED ONE Stop: 09/07/19 18:35 Last Admin: 09/07/19 18:40 Dose: Not Given Potassium Chloride 40 meq/ (Premix) 100 mls @ 25 mls/hr IV ONETIME ONE Stop: 09/07/19 23:31 Last Admin: 09/07/19 20:53 Dose: 25 mls/hr Potassium Chloride (Klor-Con M20) 40 meq PO ONETIME ONE Stop: 09/07/19 19:34 Last Admin: 09/07/19 20:22 Dose: 40 meq Potassium Chloride (Klor-Con M20) 40 meq PO ONETIME ONE Stop: 09/08/19 07:38 Last Admin: 09/08/19 09:20 Dose: 40 meq <Raymond Benitez - Last Filed: 09/10/19 19:43> Discharge Summary - Referral to Home Health Primary Care Physician: Kailyn Portillo MD - Patient Data Vitals - Most Recent: Last Vital Signs Temp 36.9 C 09/08/19 08:00 Pulse 71 09/08/19 08:00 Resp 17 09/08/19 08:00 BP 119/71 09/08/19 08:00 Pulse Ox 96 09/08/19 08:00 SARBJIT Results - Last 24 hrs: Microbiology 09/07/19 19:00 Aerobic Blood Culture - Preliminary Blood - Venous - Lab Draw NO GROWTH AFTER 3 DAYS Anaerobic Blood Culture - Preliminary NO GROWTH AFTER 3 DAYS 09/07/19 18:46 Aerobic Blood Culture - Preliminary Blood - Venous NO GROWTH AFTER 3 DAYS Anaerobic Blood Culture - Preliminary NO GROWTH AFTER 3 DAYS Med Orders - Current: Current Medications Discontinued Medications Acetaminophen (Tylenol) 650 mg PO Q4H PRN PRN Reason: Pain (Mild 1-3)/fever Last Admin: 09/08/19 09:29 Dose: 650 mg Heparin Sodium (Porcine) (Heparin Sodium) 5,000 units SUBCUT Q8H [facility] Last Admin: 09/08/19 06:24 Dose: 5,000 units Ciprofloxacin/Dextrose 400 mg/ (Premix) 200 mls @ 200 mls/hr IV Q12H [facility] Last Admin: 09/08/19 06:24 Dose: 200 mls/hr Metronidazole 500 mg/ Premix 100 mls @ 100 mls/hr IV ONETIME ONE Stop: 09/07/19 19:17 Last Admin: 09/07/19 20:13 Dose: Not Given Sodium Chloride (Normal Saline) 1,000 mls @ 999 mls/hr IV STAT ONE Stop: 09/07/19 19:17 Last Admin: 09/07/19 18:40 Dose: 999 mls/hr Metronidazole (Flagyl 500 Mg In Ns 100 Ml) Confirm Administered Dose 100 mls @ as directed .ROUTE .STK-MED ONE Stop: 09/07/19 18:35 Last Admin: 09/07/19 18:40 Dose: Not Given Sodium Chloride (Normal Saline) 1,000 mls @ 125 mls/hr IV ASDIRECTED [facility] Last Admin: 09/08/19 04:14 Dose: 125 mls/hr Metronidazole 500 mg/ Premix 100 mls @ 100 mls/hr IV Q6H [facility] Last Admin: 09/08/19 09:21 Dose: 100 mls/hr Potassium Chloride 40 meq/ (Premix) 100 mls @ 25 mls/hr IV ONETIME ONE Stop: 09/07/19 23:31 Last Admin: 09/07/19 20:53 Dose: 25 mls/hr Ondansetron HCl (Zofran Odt) 4 mg PO Q4H PRN PRN Reason: nausea, able to take PO Ondansetron HCl (Zofran) 4 mg IVPUSH Q4H PRN PRN Reason: Nausea Potassium Chloride (Klor-Con M20) 40 meq PO ONETIME ONE Stop: 09/07/19 19:34 Last Admin: 09/07/19 20:22 Dose: 40 meq Potassium Chloride (Klor-Con M20) 40 meq PO ONETIME ONE Stop: 09/08/19 07:38 Last Admin: 09/08/19 09:20 Dose: 40 meq - Free Text/Narrative Note: I have seen and examined the patient with the resident. I have discussed findings and treatment plan with the resident. I agree with the assessment and plan outlined in the following note.
== END 2019-09-08 13:15 | disposition home or self-care (01) ==
LOC: MW.ED 18:08 → MW.MS 18:57
PROVIDERS: ADMIT Student in an Organized Health Care Education/Training Program; ATTEND Student in an Organized Health Care Education/Training Program
DX: K57.32 Diverticulitis of large intestine without perforation or abscess without bleeding (principal); E87.6 Hypokalemia; N17.9 Acute kidney failure, unspecified; I10 Essential (primary) hypertension; E78.5 Hyperlipidemia, unspecified; N20.0 Calculus of kidney; K21.9 Gastro-esophageal reflux disease without esophagitis; G43.909 Migraine, unspecified, not intractable, without status migrainosus; E66.9 Obesity, unspecified; Z68.31 Body mass index [BMI] 31.0-31.9, adult; Z88.2 Allergy status to sulfonamides; Z79.899 Other long term (current) drug therapy
CPT/HCPCS: 36415; 80053; 81001; 85025; 85610; 87040; 96360; 99284; A9270; J0744; J1644; J3480; J3490; J7030; 96361; 96365; 96366; 96367; 96372; 99283; G0378

== ENCOUNTER 2020-02-15 09:47 | Day surgery (SDC) | payer BC ==
[~2020-02-15 09:47] MED LIST changes: +Sodium Chloride 0.9% 10 ML SDV IV PRN; +Sodium Chloride 0.9% 10 ML Syringe FLUSH PRN; +Sodium Chloride 0.9% 2.5 ML Syringe FLUSH PRN; +ceFAZolin 2 GM in Premix Bag 1 BAG IV ONE
--- NOTE | 2020-02-15 11:23 | PCM.PREANE ---
Preanesthetic Assessment - Anesthesia/Transfusion/Family Hx Anesthesia History: Prior Anesthesia Without Reaction Family History of Anesthesia Reaction: No Transfusion History: No Prior Transfusion(s) Intubation History: Unknown - Review of Systems General: No Symptoms Pulmonary: No Symptoms Cardiovascular: No Symptoms Gastrointestinal: No Symptoms Neurological: No Symptoms Other: Reports: None - Physical Assessment Vital Signs: Last Vital Signs Temp 36.7 C 02/15/20 10:36 Pulse 68 02/15/20 10:36 Resp 16 02/15/20 10:36 BP 147/93 H 02/15/20 10:36 Pulse Ox 97 02/15/20 10:36 Height: 5 ft 7 in Weight: 93.44 kg ASA Class: 2 Mental Status: Alert & Oriented x3 Airway Class: Mallampati = 2 Dentition: Reports: Normal Dentition Thyro-Mental Finger Breadths: 3 Mouth Opening Finger Breadths: 2 ROM/Head Extension: Full Lungs: Clear to Auscultation, Normal Respiratory Effort Cardiovascular: Regular Rate, Regular Rhythm - Allergies Allergies/Adverse Reactions: Allergies Allergy/AdvReac Type Severity Reaction Status Date / Time Sulfa (Sulfonamide Allergy Rash Verified 02/15/20 10:32 Antibiotics) - Blood Blood Available: No - Anesthesia Plan Pre-Op Medication Ordered: None - Acknowledgements Anesthesia Type Planned: General Anesthesia Pt an Appropriate Candidate for the Planned Anesthesia: Yes Alternatives and Risks of Anesthesia Discussed w Pt/Guardian: Yes Pt/Guardian Understands and Agrees with Anesthesia Plan: Yes PreAnesthesia Questionnaire HEENT History: Reports: Allergic Rhinitis Cardiovascular History: Reports: Hypertension Respiratory History: Reports: Other (See Below) Other Respiratory History: 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 Gastrointestinal History: Reports: GERD Other Gastrointestinal History: hx of "possible diverticulitis", h/o gastric ulcer Genitourinary History: Reports: Renal Calculus [employer] History: Reports: Spontaneous Musculoskeletal History: Reports: Fracture Other Musculoskeletal History: hx fx ankle, occasional neck and back pain Neurological History: Reports: None Psychiatric History: Reports: None Endocrine/Metabolic History: Reports: Obesity/BMI 30+ (BMI 32.3) Hematologic History: Reports: None Immunologic History: Reports: None Oncologic (Cancer) History: Reports: None Dermatologic History: Reports: None - Infectious Disease History Infectious Disease History: Reports: Chicken Pox - Past Surgical History Head Surgeries/Procedures: Reports: None HEENT Surgical History: Reports: Adenoidectomy, Naso-Sinus Surgery, Oral Surgery , Tonsillectomy Other HEENT Surgeries/Procedures: hx of fx orbit from being hit by a softball Cardiovascular Surgical History: Reports: None Respiratory Surgical History: Reports: None GI Surgical History: Reports: Appendectomy, Cholecystectomy, Colonoscopy, EGD Female Surgical History: Reports: Breast Reduction, Dilitation & Evacuation, Kidney stone extraction Endocrine Surgical History: Reports: None Neurological Surgical History: Reports: None Musculoskeletal Surgical History: Reports: None Oncologic Surgical History: Reports: None Dermatological Surgical History: Reports: None - History Comment History Comment: etoh "1-2x a week" - SUBSTANCE USE Smoking Status *Q: Never Smoker Days Per Week of Alcohol Use: 7 Number of Drinks Per Day: 2 Total Drinks Per Week: 14 - HOME MEDS Home Medications: Home Meds Calc/D3/Mag/Zn/Dagoberto/Gutierrez/[place] [Calcium 600 MG Plus Vit D] 1 each PO DAILY 12/09 [History] Lutein/Minerals/Vit A,C & E [Ocuvite] 1 tab PO DAILY 12/09/18 [History] Chlorthalidone 25 mg PO ACBREAKFAST 12/14/18 [History] carvediloL [Carvedilol] 12.5 mg PO TID 12/14/18 [History] Esomeprazole Magnesium [Nexium] 1 tab PO ASDIRECTED PRN 02/14/20 [History] Ciprofloxacin HCl [Cipro] 500 mg PO DAILY 02/15/20 [History] - CURRENT (IN HOUSE) MEDS Current Meds: Current Medications Lactated Ringer's (Ringers, Lactated) 1,000 mls @ 100 mls/hr IV ASDIRECTED [facility] Last Admin: 02/15/20 10:32 Dose: 100 mls/hr Sodium Chloride (Saline Flush) 10 ml FLUSH ASDIRECTED PRN PRN Reason: Keep Vein Open Sodium Chloride (Saline Flush) 2.5 ml FLUSH ASDIRECTED PRN PRN Reason: Keep Vein Open Sodium Chloride (Normal Saline) 10 ml IV ASDIRECTED PRN PRN Reason: IV Use Discontinued Medications Cefazolin Sodium/Dextrose 2 gm (/ Premix) 50 mls @ 100 mls/hr IV ONETIME ONE Stop: 02/14/20 11:59
[2020-02-15] MEDS ORDERED: Propofol 200 MG/20 ML SDV ONE (13:10)
[2020-02-15] MEDS ORDERED: fentaNYL 100 MCG/2 ML SDV ONE (13:10)
[2020-02-15] MEDS ORDERED: Midazolam 1 MG/ML 2 ML SDV ONE (13:10)
[2020-02-15] MEDS ORDERED: Ketorolac 30 MG/ML SDV ONE (13:17)
[2020-02-15] MEDS ORDERED: Ondansetron 4 MG/2 ML SDV ONE (13:17)
[2020-02-15] MEDS ORDERED: Lidocaine 2% 5 ML SDV ONE (13:17)
[2020-02-15] MEDS ORDERED: Glycopyrrolate 0.2 MG/ML SDV ONE (13:17)
[2020-02-15] MEDS ORDERED: Bupivacaine 0.25% 10 ML SDV ONE (13:42)
[2020-02-15] MEDS ORDERED: ceFAZolin 1 GM Vial ONE (14:00)
[2020-02-15] MEDS ORDERED: Sodium Chloride 0.9% 20 ML ONE (14:00)
[2020-02-15] MEDS ORDERED: ESOMEPRAZOLE MAGNESIUM PO PRN (14:52)
--- NOTE | 2020-02-15 15:29 | PCM.POSTAN ---
POST ANESTHESIA ASSESSMENT - MENTAL STATUS Mental Status: Alert - VITAL SIGNS Vital Signs: Last Vital Signs Temp 36.7 C 02/15/20 10:36 Pulse 68 02/15/20 10:36 Resp 16 02/15/20 10:36 BP 147/93 H 02/15/20 10:36 Pulse Ox 97 02/15/20 10:36 - RESPIRATORY Respiratory Status: Respiratory Rate WNL - CARDIOVASCULAR CV Status: Pulse Rate WNL - GASTROINTESTINAL GI Status: No Symptoms - POST OP HYDRATION Hydration Status: Adequate & Stable
[2020-02-15] MEDS ORDERED: Acetaminophen/HYDROcodone 325-5 MG Tab PO ONE (15:30)
[2020-02-15] MEDS ORDERED: Acetaminophen/HYDROcodone 325-5 MG Tab ONE (15:38)
--- NOTE | 2020-02-15 15:51 | PCM48HPAN ---
Post Anesthesia Note - EVALUATION WITHIN 48HRS OF ANESTHETIC Vital Signs in Normal Range: Yes Patient Participated in Evaluation: Yes Respiratory Function Stable: Yes Airway Patent: Yes Cardiovascular Function Stable: Yes Hydration Status Stable: Yes Pain Control Satisfactory: Yes Nausea and Vomiting Control Satisfactory: Yes Mental Status Recovered: Yes Vital Signs: Last Vital Signs Temp 36.7 C 02/15/20 10:36 Pulse 68 02/15/20 10:36 Resp 16 02/15/20 10:36 BP 147/93 H 02/15/20 10:36 Pulse Ox 97 02/15/20 10:36
--- NOTE | 2020-02-15 16:24 | OR ---
SURGEON: Luis Estrada M.D. DATE OF PROCEDURE: 02/15/2020 PREOPERATIVE DIAGNOSIS: Urethral diverticulum. POSTOPERATIVE DIAGNOSIS: Excision of urethral diverticulum. DESCRIPTION OF PROCEDURE: The patient was given general anesthesia. She was placed in dorsal lithotomy position, prepped and draped in sterile drapes. A catheter was placed in the bladder. The incision was made in the midline over the diverticulum. Dissection was carried out until the diverticulum was excised. The urethra was inadvertently entered right behind the meatus that was closed with 4-0 chromic suture. The vaginal wall was then closed using 3-0 chromic interrupted sutures. The patient tolerated the procedure well and was moved to recovery room in good condition. She will be sent home on Keflex for the next 3 days. She will come to see me in 3 weeks. FEDE / LAMAR /[id number]
[2020-02-15 16:42] VITALS: BP 140/78; PULSE 61
[2020-02-15] MEDS ORDERED: Carvedilol 12.5 MG Tab PO SCH (22:00)
[2020-02-16] MEDS ORDERED: Chlorthalidone 25 MG Tab PO SCH (07:30)
[2020-02-16] MEDS ORDERED: BORON PO SCH (09:00)
[2020-02-16] MEDS ORDERED: CALC PO SCH (09:00)
[2020-02-16] MEDS ORDERED: MANG PO SCH (09:00)
[2020-02-16] MEDS ORDERED: Non-Formulary Medication 1 Each (Lutein/Minerals/Vit A,C & E 1 TAB) PO SCH (09:00)
[2020-02-16] MEDS ORDERED: [UNRECOGNIZED DRUG - OTHER] PO SCH (09:00)
[2020-02-16] MEDS ORDERED: D3 PO SCH (09:00)
[2020-02-16] MEDS ORDERED: COPP PO SCH (09:00)
[2020-02-16] MEDS ORDERED: MAG PO SCH (09:00)
== END 2020-02-15 16:07 | disposition home or self-care (01) ==
LOC: MW.SDS 09:47
PROVIDERS: ATTEND Urology
DX: N36.1 Urethral diverticulum (principal); N34.2 Other urethritis; J45.909 Unspecified asthma, uncomplicated; K21.9 Gastro-esophageal reflux disease without esophagitis; I10 Essential (primary) hypertension; Z88.2 Allergy status to sulfonamides; E66.9 Obesity, unspecified; Z68.32 Body mass index [BMI] 32.0-32.9, adult; Z79.899 Other long term (current) drug therapy
CPT/HCPCS: 53230; 88305; A9270; J0690; J1885; J2001; J2250; J2405; J2704; J3010; J3490; J7120; 00910

== ENCOUNTER 2020-04-11 12:03 | Emergency (ER) | payer BC ==
--- NOTE | 2020-04-11 12:50 | EDM.PDOC ---
ED HPI GENERAL MEDICAL PROBLEM - General Chief Complaint: Cardiovascular Problem Stated Complaint: HIGH BLOOD PRESSURE Time Seen by Provider: 04/11/20 12:05 Source of Information: Reports: Patient History Limitations: Reports: No Limitations - History of Present Illness INITIAL COMMENTS - FREE TEXT/NARRATIVE: Presents reporting "just do not feel good". She states about a week and a half ago she felt exhausted, tired, could not sleep for 24 hours. On Friday she saw a provider in primary care. She was not given a specific diagnosis. On 04/05/2020 she to see her urologist for a postop visit--she had a urologic surgery on February [address] Estrada, urology. No postop complications or problems and did have some lab work done which is provided here today: BUN 25 creatinine 1.3, estimated GFR 42.7. She has an appointment in primary care for 3:00 this afternoon. This morning however after her shower she felt hot, sweaty, weak, nauseous, mildly short of breath and some burning midsternal chest pain. She states "I do not know what I would do for the 3 hours before my appointment this afternoon". She had one loose stool yesterday--none today. She is menopausal and does have vasomotor symptoms. No fever, abdominal pain, vomiting. She reports a medical history of hypertension which she states she takes both chlorthalidone and carvedilol on a regular basis. body Pain Score (Numeric/FACES): 5 - Related Data Allergies Allergy/AdvReac Type Severity Reaction Status Date / Time Sulfa (Sulfonamide Allergy Rash Verified 04/11/20 12:10 Antibiotics) Home Meds: Home Meds Calc/D3/Mag/Zn/[place] [Calcium 600 MG Plus Vit D] 1 each PO DAILY 12/09/18 [History] Lutein/Minerals/Vit A,C & E [Ocuvite] 1 tab PO DAILY 12/09/18 [History] Chlorthalidone 25 mg PO ACBREAKFAST 12/14/18 [History] carvediloL [Carvedilol] 12.5 mg PO TID 12/14/18 [History] Esomeprazole Magnesium [Nexium] 1 tab PO ASDIRECTED PRN 02/14/20 [History] Past Medical History HEENT History: Reports: Allergic Rhinitis Cardiovascular History: Reports: Hypertension Respiratory History: Reports: Other (See Below) Other Respiratory History: 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 Gastrointestinal History: Reports: GERD Other Gastrointestinal History: hx of "possible diverticulitis", h/o gastric ulcer Genitourinary History: Reports: Renal Calculus [employer] History: Reports: Spontaneous Musculoskeletal History: Reports: Fracture Other Musculoskeletal History: hx fx ankle, occasional neck and back pain Neurological History: Reports: None Psychiatric History: Reports: None Endocrine/Metabolic History: Reports: Obesity/BMI 30+ Hematologic History: Reports: None Immunologic History: Reports: None Oncologic (Cancer) History: Reports: None Dermatologic History: Reports: None - Infectious Disease History Infectious Disease History: Reports: Chicken Pox - Past Surgical History Head Surgeries/Procedures: Reports: None HEENT Surgical History: Reports: Adenoidectomy, Naso-Sinus Surgery, Oral Surgery, Tonsillectomy Other HEENT Surgeries/Procedures: hx of fx orbit from being hit by a softball Cardiovascular Surgical History: Reports: None Respiratory Surgical History: Reports: None GI Surgical History: Reports: Appendectomy, Cholecystectomy, Colonoscopy, EGD Female Surgical History: Reports: Breast Reduction, Dilitation & Evacuation, Kidney stone extraction Endocrine Surgical History: Reports: None Neurological Surgical History: Reports: None Musculoskeletal Surgical History: Reports: None Oncologic Surgical History: Reports: None Dermatological Surgical History: Reports: None - History Comment History Comment: etoh "1-2x a week" Social & Family History - Family History Family Medical History: Noncontributory - Tobacco Use Smoking Status *Q: Never Smoker Second Hand Smoke Exposure: No - Caffeine Use Caffeine Use: Reports: None - Recreational Drug Use Recreational Drug Use: No ED ROS GENERAL - Review of Systems Review Of Systems: Comprehensive ROS is negative, except as noted in HPI. ED EXAM, GENERAL - Physical Exam Exam: See Below Exam Limited By: No Limitations General Appearance: Alert, No Apparent Distress Ears: Normal External Exam, Normal TMs Nose: Normal Inspection Throat/Mouth: Normal Inspection, Normal Oropharynx Head: Atraumatic, Normocephalic Neck: Normal Inspection Respiratory/Chest: No Respiratory Distress, Lungs Clear, Normal Breath Sounds Cardiovascular: Regular Rate, Rhythm, No Murmur GI/Abdominal: Normal Bowel Sounds, Soft, Non-Tender, No Distention Back Exam: Normal Inspection Extremities: Normal Inspection Neurological: Alert, Oriented, Normal Cognition Psychiatric: Normal Affect, Normal Mood Skin Exam: Warm, Dry, Intact, Normal Color, No Rash Lymphatic: No Adenopathy Course - Vital Signs Last Recorded V/S: Last Vital Signs Temp 35.2 C L 04/11/20 12:07 Pulse 109 H 04/11/20 12:07 Resp 18 04/11/20 12:07 BP 127/85 04/11/20 12:07 Pulse Ox 98 04/11/20 12:07 - Orders/Labs/Meds Orders: Active Orders 24 hr Category Date Time Status CBC WITH AUTO DIFF [HEME] Stat Lab 04/11/20 12:25 Ordered COMPREHENSIVE METABOLIC PN,CMP [CHEM] Stat Lab 04/11/20 12:25 Ordered Departure - Departure Time of Disposition: 13:15 Disposition: Home, Self-Care 01 Condition: Good Clinical Impression: Dehydration Referrals: PCP,Unknown [Primary Care Provider] - Vern Cowart MD [Physician] - Additional Instructions: The following information is given to patients seen in the emergency department who are being discharged to home. This information is to outline your options for follow-up care. We provide all patients seen in our emergency department with a follow-up referral. The need for follow-up, as well as the timing and circumstances, are variable d epending upon the specifics of your emergency department visit. If you don't have a primary care physician on staff, we will provide you with a referral. We always advise you to contact your personal physician following an emergency department visit to inform them of the circumstance of the visit and for follow-up with them and/or the need for any referrals to a consulting specialist. The emergency department will also refer you to a specialist when appropriate. This referral assures that you have the opportunity for follow-up care with a specialist. All of these measure are taken in an effort to provide you with optimal care, which includes your follow-up. Under all circumstances we always encourage you to contact your private physician who remains a resource for coordinating your care. When calling for follow-up care, please make the office aware that this follow-up is from your recent emergency room visit. If for any reason you are refused follow-up, please contact the [facility] Emergency Department at and asked to speak to the emergency department charge nurse. 1. Follow-up with Dr. Cowart in the clinic this afternoon as previously scheduled 2. Your lab and x-ray have been provided which you may share with Dr. Cowart. Sepsis Event Note (ED) - Evaluation Sepsis Screening Result: No Definite Risk - Focused Exam Vital Signs: Vital Signs Temp Pulse Resp BP Pulse Ox 04/11/20 12:07 35.2 C L 109 H 18 127/85 98 - My Orders Last 24 Hours: My Active Orders 04/11/20 12:25 CBC WITH AUTO DIFF [HEME] Stat COMPREHENSIVE METABOLIC PN,CMP [CHEM] Stat - Assessment/Plan Last 24 Hours: My Active Orders 04/11/20 12:25 CBC WITH AUTO DIFF [HEME] Stat COMPREHENSIVE METABOLIC PN,CMP [CHEM] Stat
[2020-04-11 13:05] LABS: CARBON DIOXIDE,CO2 31.6 mmol/L (21.0-32.0); POTASSIUM,K 3.3 mmol/L (3.5-5.1)
[2020-04-11 16:08] VITALS: BP 123/78; PULSE 82
== END 2020-04-11 13:06 | disposition home or self-care (01) ==
LOC: MW.ED 12:03
DX: E86.0 Dehydration (principal); I10 Essential (primary) hypertension; K21.9 Gastro-esophageal reflux disease without esophagitis; E66.9 Obesity, unspecified; Z88.2 Allergy status to sulfonamides; Z79.899 Other long term (current) drug therapy; Z68.29 Body mass index [BMI] 29.0-29.9, adult
CPT/HCPCS: 36415; 80053; 84484; 85025; 93005; 99282; 99284-25

== ENCOUNTER 2021-10-11 12:59 | Emergency (ER) | payer BC ==
[2021-10-11] MEDS ORDERED: Acetaminophen 500 MG Tab PO ONE (14:04)
[2021-10-11] MEDS ORDERED: Ketorolac 60 MG/2 ML SDV IM ONE (14:04)
[2021-10-11 14:06] LABS: CORONAVIRUS COVID-19 NAA POSITIVE (NEGATIVE); INFLUENZA A NAA NEGATIVE (NEGATIVE); INFLUENZA B NAA NEGATIVE (NEGATIVE); RESPIRATORY SYNCYTIAL VIR NAA NEGATIVE (NEGATIVE)
[2021-10-11 19:41] VITALS: BP 122/76; PULSE 64
== END 2021-10-11 15:09 | disposition home or self-care (01) ==
LOC: MW.ED 12:59
DX: U07.1 COVID-19 (principal); I10 Essential (primary) hypertension; E66.9 Obesity, unspecified; Z68.31 Body mass index [BMI] 31.0-31.9, adult; Z88.2 Allergy status to sulfonamides
CPT/HCPCS: 0241U; 96372; 99284; A9270; J1885

== ENCOUNTER 2021-10-29 08:50 | Emergency (ER) | payer BC ==
[2021-10-29 08:57] VITALS: BP 125/74; PULSE 73
[2021-10-29] MEDS ORDERED: Sodium Chloride 0.9% 1,000 ML IV ONE (09:30)
[2021-10-29] MEDS ORDERED: Ketorolac 30 MG/ML SDV IVPUSH ONE (09:31)
[2021-10-29 10:01] LABS: CARBON DIOXIDE,CO2 22.7 mmol/L (21.0-32.0); POTASSIUM,K 4.1 mmol/L (3.5-5.1)
[2021-10-29] MEDS ORDERED: Iopamidol 755 Mg/ML 100 ML Bottle IVPUSH STA (10:34)
== END 2021-10-29 11:38 | disposition home or self-care (01) ==
LOC: MW.ED 08:50
DX: U07.1 COVID-19 (principal); J12.82 Pneumonia due to coronavirus disease 2019; I10 Essential (primary) hypertension; Z88.2 Allergy status to sulfonamides
CPT/HCPCS: 36415; 71275; 80053; 85025; 96374; 99285; J1885; J7030; Q9967

== ENCOUNTER 2021-10-30 09:16 | Emergency (ER) | payer BC ==
[2021-10-30 10:13] VITALS: BP 134/88; PULSE 64
== END 2021-10-30 10:13 | disposition home or self-care (01) ==
LOC: MW.ED 09:16
DX: S16.1XXA Strain of muscle, fascia and tendon at neck level, initial encounter (principal); I10 Essential (primary) hypertension; K21.9 Gastro-esophageal reflux disease without esophagitis; E66.9 Obesity, unspecified; Z68.30 Body mass index [BMI] 30.0-30.9, adult; Z86.16 Personal history of COVID-19; Z88.2 Allergy status to sulfonamides; Z79.899 Other long term (current) drug therapy
CPT/HCPCS: 99283